=== PATIENT | female | born 1995 | race Caucasian/White ===

== ENCOUNTER 2019-11-24 14:33 | Outpatient (CLI) | payer OTHER, SELFPAY ==
[2019-11-24 15:07] VITALS: BP 115/79; PULSE 80; RESP 17; TEMP 36.8; O2SAT 95
[2019-11-24] MEDS: diphenhydrAMINE 50 mg/mL SDV 1mL 25 MG IVP (15:58)
[2019-11-24] MEDS: ondansetron 2 mg/ML SDV 2 mL 4 MG IVP (16:00)
[2019-11-24] MEDS: dihydroergotamine 1 mg/mL Inj IVP (16:14)
--- NOTE | 2019-11-24 16:47 | PC.NURSE ---
Patient had onset of increased headache, dizziness, stated I feel like I am going to pass out. The whole room is spinning. Vitals as recorded BP 168/88 Pulse 96. Provider notified, treatment stopped. Will await new orders.
[2019-11-24] MEDS: diphenhydrAMINE 50 mg/mL SDV 1mL IVP (17:23)
[2019-11-24] MEDS: ketorolac 30 mg/mL INJ IVP (17:23)
[2019-11-24] MEDS: metoclopramide 5 mg/mL SDV 2 mL 10 MG IVP (17:23)
--- NOTE | 2019-11-24 18:15 | PC.NURSE ---
BP 118/74 Pulse 69 Resp 16 Patient states pain is now a level 2/10 from 03/01. Will report to provider.
--- NOTE | 2019-11-24 18:22 | PC.NURSE ---
Spoke to Dr Barros report given states okay for patient to discharge home and follow up with office on Wednesday.
== END 2019-11-24 18:47 | disposition home or self-care (01) ==
LOC: OPMS 14:36 → MEDSURG 15:16
PROVIDERS: Family Provider Family Medicine; PCP Family Medicine; Visit Provider Family Medicine
DX: G43.509 Persistent migraine aura without cerebral infarction, not intractable, without status migrainosus (principal)
CPT/HCPCS: 96365; J1110; J1200; J1885; J2405; J2765

== ENCOUNTER 2019-12-04 14:14 | Outpatient (CLI) | payer OTHER, SELFPAY ==
--- NOTE | 2019-12-04 | MR_ITS ---
WS: [id number] MRI BRAIN WITH AND WITHOUT CONTRAST HISTORY: WORST HEADACHE OF LIFE COMPARISON: CT head 01/20/2019. TECHNIQUE: Multiplanar imaging performed through the brain with Prohance 17 ml's IV. No acute infarcts are seen. Barr-white matter differentiation is well preserved. No susceptibility artifacts or prior lacunar infarcts. Ventricles and extra-axial spaces are normal. Clivus and pituitary gland are normal. Craniocervical junction is narrowed. The odontoid process with mild contact on the ventral upper cerv ical cord. Postcontrast images are negative for masses or vascular malformations. Dural venous sinuses are normal. Paranasal sinuses: T2 bright 17 mm nodule LEFT frontal sinus. Probably mucous retention cyst. Otherwi se the sinuses are clear. Mastoid air cells: Normal. Calvarium and scalp: Normal. MR/MR head wo/w con [id number] IMPRESSION: 1. No acute infarct or abnormal enhancement. 2. Craniocervical junction stenosis, mild. May be symptomatic if causing compr ession upon the upper cervical cord. No cord atrophy or edema is appreciated. 3. Mucous retention cyst in the frontal sinuses.
== END 2019-12-04 14:15 | disposition home or self-care (01) ==
PROVIDERS: Family Provider Family Medicine; PCP Family Medicine; Visit Provider Family Medicine
DX: R51 Headache (principal); J34.1 Cyst and mucocele of nose and nasal sinus
CPT/HCPCS: 70553; A9579

== ENCOUNTER 2020-03-23 18:17 | Emergency (ER) | payer OTHER, SELFPAY ==
[2020-03-23 18:19] VITALS: BP 148/99; PULSE 117; RESP 20; TEMP 37.3; O2SAT 97
--- NOTE | 2020-03-23 18:24 | XRR_ITS ---
PROCEDURE INFORMATION: Exam: XR Chest, 1 View Exam date and time: 03/23/2020 6:26 PM Age: 25 years old Clinical indication: Cough; Additional info: SOB, cough and fever TECHNIQUE: Imaging protocol: XR of the chest Views: 1 view. COMPARISON: CR Chest 1 [place] [id number] 04/26/2015 8:46 AM FINDINGS: Lungs: Unremarkable. No consolidation. Pleural space: Unremarkable. No pleural effusion. No pneumothorax. Heart/Mediastinum: Unremarkable. No cardiomegaly. Bones/joints: Unremarkable. XR/XR chest 1V portable [id number] IMPRESSION: No acute findings.
--- NOTE | 2020-03-23 18:26 | ED_ITS ---
HPI - Fever General: Chief Complaint: Fever Stated Complaint: fever Time Seen by Provider: 03/23/20 18:22 History of Present Illness: HPI Narrative: Patient is a 25-year-old female who comes to the ED with fever, cough and nasal congestion for the past 36 hours. Highest temperature recorded at home was 100.6. Patient says the cough is productive and she gets up yellow-green sputum. Cough is worse at night when laying flat. She does describe feeling some shortness of breath as well, but no wheezing. Patient does endorse being in contact with COVID positive patient in the last 14 days. Endorses body aches. Denies any nausea, vomiting, abdominal pain, chest pain, bladder or bowel symptoms. Associated symptoms: Reports nasal congestion; Deny abdominal pain, flank pain, chills, chest pain, diarrhea, dysuria, headache(s), nausea or vomiting Review of Systems Const: Reports: fever(s) and body aches; Denies: chills or fatigue Eyes: Denies: change in vision or eye discomfort ENMT: Reports: nasal discharge and nasal congestion; Denies: throat pain, odynophagia or ear or mastoid pain Card: Denies: chest pain, palpitations, edema, swelling of feet/ankles, dyspnea on exertion or orthopnea Resp: Reports: dyspnea and productive cough; Denies: non-productive cough or wheezing GI: Denies: abdominal pain, nausea, vomiting, diarrhea, constipation or hematochezia : Denies: flank pain, dysuria or hematuria Musc: Denies: neck pain, back pain or extremity swelling Skin/Breast: Denies: rash or new lesions Neuro: Denies: headache(s), numbness in extremities or weakness in extremities Physical Exam Const: COMMON NORMALS: no acute distress, patient oriented x3, healthy appearing and alert GENERAL APPEARANCE: cooperative and comfortable HENMT: COMMON NORMALS: normocephalic HEAD & SCALP: normocephalic FACE & SINUS: no sinus tenderness and no Facial tenderness on exam of face and sinuses NOSE: Other nasal findings present (Patient sounded congested and was sniffling while in the ED during history and physical exam.) MOUTH: Normal oral and palatal mucosa present THROAT: posterior oropharynx normal and uvula midline Neck/C-Spine: COMMON NORMALS: supple GENERAL: Yes normal visual inspection Resp: COMMON NORMALS: normal respiratory effort, No retractions, No use of accessory muscles and clear to auscultation bilaterally EFFORT & INSPECTION: Yes able to speak in complete sentences, No tachypneic, No respiratory distress, No labored and No audible wheezes AUSCULTATION: clear to auscultation bilaterally and diminished lung sounds bilateral (Mild diminished lung sounds in the bases bilaterally, but no wheezing or crackling heard.) Cardio: COMMON NORMALS: regular rate, regular rhythm, S1 normal heart sound present, S2 normal heart sound present, No gallops present (Cardio), No clicks present (Cardio), No murmurs present (Cardio) and Peripheral pulses 2+ throughout RATE: regular rate RHYTHM: regular rhythm HEART SOUNDS: S1 normal heart sound present and S2 normal heart sound present PERIPHERAL PULSES: Peripheral pulses 2+ throughout GI: COMMON NORMALS: Normal to inspection, nondistended, normoactive bowel sounds present, Soft to palpation, non-tender and no masses PALPATION: Yes Soft to palpation : COMMON NORMALS: Yes no CVA tenderness BLADDER/KIDNEY EXAM: Yes no CVA tenderness Back/Pelvis: COMMON NORMALS: no CVA tenderness Extremity: COMMON NORMALS: normal to inspection and no pedal edema Neuro: COMMON NORMALS: patient oriented x3 and moves all extremities SENSORIUM/ORIENTATION: Yes alert Skin: COMMON NORMALS: no rashes or lesions noted GENERAL SKIN EXAM: no rashes or lesions noted and dry skin Course Vital Signs: Vital signs: Vital Signs Temperature 99.1 F 03/23/20 18:19 Pulse Rate 97 03/23/20 20:35 Respiratory Rate 19 H 03/23/20 20:35 Blood Pressure 124/80 03/23/20 20:35 Pulse Oximetry 98 03/23/20 20:35 MDM - Fever MDM Narrative: Medical decision making narrative: Patient is a 25-year-old female comes to the ED with upper respiratory infection symptoms and fever. CBC, CMP were unremarkable. hCG serum was negative. Influenza negative patient was given a DuoNeb treatment and symptoms improved. Chest x-ray showed no acute findings. COVID testing was performed and pending results. Patient was discharged and told to self quarantine for the next 14 days pending COVID results. She was sent home with a prescription for albuterol inhaler and Tessalon Perles. Return to ED precautions given. Patient understood and agreed with plan. Lab Data: Attestation: I reviewed the patient's lab results. Labs: Lab Results 03/23/20 03/23/20 03/23/20 Range/Units 18:30 18:52 18:52 WBC 9.4 (4.0-10.0) 10^3/ uL RBC 4.63 (4.1-5.3) 10^6/u L Hgb 13.7 (11.5-15.3) g/dL Hct 42.1 (37.0-47.0) % MCV 90.9 (81-99) fL MCH 29.6 (28.0-34.0) pg MCHC 32.5 (30.0-36.0) g/dL RDW 13.1 (12.1-15.1) % Plt Count 290 (130-400) 10^3/c mm MPV 10.2 (7.4-10.4) fL Neut % (Auto) 70.2 % Lymph % (Auto) 17.0 % [place] % (Auto) 8.0 % Eos % (Auto) 3.9 % Baso % (Auto) 0.7 % Neut # (Auto) 6.56 (1.8-7.7) 10^3/u L Lymph # (Auto) 1.6 (0.8-4.8) 10^3/u L [place] # (Auto) 0.8 (0.2-0.9) 10^3/u L Eos # (Auto) 0.4 (0.0-0.8) 10^3/u L Baso # (Auto) 0.1 (0.0-0.1) 10^3/u L Nucleated RBC % (a uto) 0 % Nucleated RBCs # 0.0 /100WBC Sodium 141 (136-145) mmol/L Potassium 4.1 (3.5-5.1) mmol/L Chloride 106 (98-107) mmol/L Carbon Dioxide 23 (22-29) mmol/L Anion Gap 16.1 (5-19) BUN 10 (6-20) mg/dL Creatinine 0.8 (0.5-0.9) mg/dL GFR Calculation 88.9 L (90-130) mL/min Glucose 96 (65-115) mg/dL Calculated Osmolal ity 288 (285-295) mOsm/k g Calcium 9.2 (8.5-10.5) mg/dL Total Bilirubin 0.3 (0.15-1.2) mg/dL AST 16 (0-32) U/L ALT 14 (0-33) U/L Alkaline Phosphata se 95 (35-105) IU/L Total Protein 7.3 (6.6-8.7) g/dL Albumin 4.5 (3.5-5.2) g/dL Globulin 2.8 (1.3-4.6) g/dL HCG, Qual (Negative) Influenza Type A A g Negative (Negative) Influenza Type B A g Negative (Negative) 03/23/20 Range/Units 18:52 WBC (4.0-10.0) 10^3/ uL RBC (4.1-5.3) 10^6/u L Hgb (11.5-15.3) g/dL Hct (37.0-47.0) % MCV (81-99) fL MCH (28.0-34.0) pg MCHC (30.0-36.0) g/dL RDW (12.1-15.1) % Plt Count (130-400) 10^3/c mm MPV (7.4-10.4) fL Neut % (Auto) % Lymph % (Auto) % [place] % (Auto) % Eos % (Auto) % Baso % (Auto) % Neut # (Auto) (1.8-7.7) 10^3/u L Lymph # (Auto) (0.8-4.8) 10^3/u L [place] # (Auto) (0.2-0.9) 10^3/u L Eos # (Auto) (0.0-0.8) 10^3/u L Baso # (Auto) (0.0-0.1) 10^3/u L Nucleated RBC % (a uto) % Nucleated RBCs # /100WBC Sodium (136-145) mmol/L Potassium (3.5-5.1) mmol/L Chloride (98-107) mmol/L Carbon Dioxide (22-29) mmol/L Anion Gap (5-19) BUN (6-20) mg/dL Creatinine (0.5-0.9) mg/dL GFR Calculation (90-130) mL/min Glucose (65-115) mg/dL Calculated Osmolal ity (285-295) mOsm/k g Calcium (8.5-10.5) mg/dL Total Bilirubin (0.15-1.2) mg/dL AST (0-32) U/L ALT (0-33) U/L Alkaline Phosphata se (35-105) IU/L Total Protein (6.6-8.7) g/dL Albumin (3.5-5.2) g/dL Globulin (1.3-4.6) g/dL HCG, Qual Negative (Negative) Influenza Type A A g (Negative) Influenza Type B A g (Negative) Imaging Data^: CXR: Attestation: I personally reviewed and interpreted this imaging study as follows: Radiologist's impression: [address] [address] XRay Report Signed Patient: Jennifer Amos Unit #: [id number] : 1995 Age/Sex: 25 / F ADM Date: 03/23/20 Loc: ER Room/Bed: Attending Dr: Ordering Provider/Ordering MD: Sanchez Kenyon Date of Service: 03/23/20 Procedure(s): XR chest 1V portable [id number] Accession Number(s): [id number] Report Number: [id number] PROCEDURE INFORMATION: Exam: XR Chest, 1 View Exam date and time: 03/23/2020 6:26 PM Age: 25 years old Clinical indication: Cough; Additional info: SOB, cough and fever TECHNIQUE: Imaging protocol: XR of the chest Views: 1 view. COMPARISON: CR Chest 1 [place] [id number] 04/26/2015 8:46 AM FINDINGS: Lungs: Unremarkable. No consolidation. Pleural space: Unremarkable. No pleural effusion. No pneumothorax. Heart/Mediastinum: Unremarkable. No cardiomegaly. Bones/joints: Unremarkable. XR/XR chest 1V portable [id number] IMPRESSION: No acute findings. Dictated By: Sushant Haskins Signed By: Sushant Haskins Signed Date/Time: 03/23/201911 DD/ 09 Discharge Plan Discharge Patient Disposition: Home Clinical Impression: Upper respiratory infection, viral, Encounter for laboratory testing for COVID- 19 virus Condition: Stable Prescriptions: New benzonatate 100 mg capsule 100 mg PO TID PRN (Reason: cough) Qty: 30 RF: 0 albuterol sulfate 90 mcg/actuation aerosol powdr breath activated 2 inh INHALATION Q6H PRN (Reason: shortness of breath) Qty: 1 RF: 0 Discharge Orders: Discharge Order (Routine); Ordered 03/23/20 Ordered By: Sanchez Kenyon Referrals: Howie Barros MD [Primary Care Provider] - Discharge Diet: Regular Discharge Activity: Increase activity as tolerated and Limit activity as instructed Patient Instructions: Viral Syndrome (ED), Upper Respiratory Infection - Adult Activity Restrictions/Additional Instructions: Follow-up with medical provider as directed in 7-10 days. COVID-19 testing was performed today and lab results should be back within the next 2 to 4 days. The hospital will contact you or you can call hospital if you have not heard about results in the next 3 to 4 days. Self quarantine for 14 days pending lab testing. Take medications as prescribed. Continue taking Tylenol for fevers. Make sure you drink plenty of fluids and stay hydrated. Return to the ER or your medical provider if condition worsens. Please read and understand discharge instructions. If any questions, please ask. Discharge Date/Time: 03/23/20 20:35 Coding Level of Care Code ED Real Estate Investment Analyst for Mukul Fwcaroline Exam Comprehensive
[2020-03-23 18:40] VITALS: RESP 18
[2020-03-23 18:57] LABS: Basophils # 0.1 10^3/uL (0.0-0.1); Basophils % 0.7 %; Eosinophils # 0.4 10^3/uL (0.0-0.8); Eosinophils % 3.9 %; Hematocrit 42.1 % (37.0-47.0); Hemoglobin 13.7 g/dL (11.5-15.3); Lymphocytes # 1.6 10^3/uL (0.8-4.8); Mean Corpuscular HGB Conc 32.5 g/dL (30.0-36.0); Mean Corpuscular Hemoglobin 29.6 pg (28.0-34.0); Mean Corpuscular Volume 90.9 fL (81-99); Mean Platelet Volume 10.2 fL (7.4-10.4); Monocytes # 0.8 10^3/uL (0.2-0.9); Neutrophils # 6.56 10^3/uL (1.8-7.7); Neutrophils % 70.2 %; Nucleated Red Blood Cells % 0 %; Platelet Count 290 10^3/cmm (130-400); Red Blood Count 4.63 10^6/uL (4.1-5.3); Red Cell Distribution Width 13.1 % (12.1-15.1); White Blood Count 9.4 10^3/uL (4.0-10.0)
[2020-03-23 18:59] LABS: Influenza A by IFA Negative (Negative); Influenza B by IFA Negative (Negative)
[2020-03-23 19:12] LABS: HCG, Serum Qual Negative (Negative)
[2020-03-23 19:18] LABS: Alanine Aminotransferase 14 U/L (0-33); Albumin Level 4.5 g/dL (3.5-5.2); Alkaline Phosphatase 95 IU/L (35-105); Anion Gap 16.1 (5-19); Aspartate Amino Transferase 16 U/L (0-32); Blood Urea Nitrogen 10 mg/dL (6-20); Calcium 9.2 mg/dL (8.5-10.5); Carbon Dioxide 23 mmol/L (22-29); Chloride 106 mmol/L (98-107); Globulin 2.8 g/dL (1.3-4.6); Glomerular Filtration Rate 88.9 mL/min (90-130); Glucose 96 mg/dL (65-115); Osmolality Calculated 288 mOsm/kg (285-295); Potassium 4.1 mmol/L (3.5-5.1); Sodium 141 mmol/L (136-145); Total Bilirubin 0.3 mg/dL (0.15-1.2); Total Protein 7.3 g/dL (6.6-8.7)
--- NOTE | 2020-03-23 19:36 | PC.NURSE ---
PATIENT SWABBED FOR COVID AT THIS TIME
[2020-03-23 19:48] VITALS: PULSE 103; RESP 20; O2SAT 97
[2020-03-23] MEDS: ipratropium-albuterol 3 mL Neb INHALATION (19:48)
[2020-03-23 19:51] VITALS: PULSE 101
[2020-03-23 20:34] VITALS: BP 124/80; PULSE 97; RESP 19; O2SAT 98
[2020-03-23 20:35] VITALS: BP 124/80; PULSE 97; RESP 19; O2SAT 98
[2020-03-25 15:00] LABS: Quest SARS-CoV-2 RNA NOT DETECTED (NOT DETECTED)
== END 2020-03-23 20:35 | disposition home or self-care (01) ==
PROVIDERS: Emergency Provider Physician Assistant; PCP Family Medicine
DX: J06.9 Acute upper respiratory infection, unspecified (principal)
CPT/HCPCS: 12345; 71045; 80053; 84703; 85025; 87040; 87635; 87804; 94640; 99281; 99283

== ENCOUNTER 2020-11-02 07:50 | Outpatient (CLI) | payer OTHER, SELFPAY ==
[2020-11-02] MEDS: dextrose 5%-sod chloride 0.9% 1,000 ML 125 ML IV (08:56)
[2020-11-02] MEDS: promethazine 25 mg/mL SDV 1 mL IM (08:57)
[2020-11-02] MEDS: sodium chloride 0.9% 1,000 ML 999 ML IV (09:50)
== END 2020-11-02 11:00 | disposition home or self-care (01) ==
LOC: OPOB 07:57 → OBGYN 07:58
PROVIDERS: PCP Family Medicine; Visit Provider Family Medicine
DX: O21.9 Vomiting of pregnancy, unspecified (principal); Z3A.00 Weeks of gestation of pregnancy not specified
CPT/HCPCS: 96360; 96361; 96372; 99211; J2550; J7030

== ENCOUNTER 2021-01-12 03:17 | Outpatient (CLI) | payer OTHER, SELFPAY ==
[2021-01-12] VITALS (10 sets, daily range): BP systolic 113–174; BP diastolic 65–96; PULSE 85–104; RESP 16; TEMP 36.5; O2SAT 90–98; BMI 49.1
[2021-01-12 04:28] LABS: Basophils # 0.1 10^3/uL (0.0-0.1); Basophils % 0.4 %; Eosinophils # 0.3 10^3/uL (0.0-0.8); Eosinophils % 2.3 %; Hematocrit 37.3 % (37.0-47.0); Hemoglobin 12.6 g/dL (11.5-15.3); Lymphocytes # 2.3 10^3/uL (0.8-4.8); Mean Corpuscular HGB Conc 33.8 g/dL (30.0-36.0); Mean Corpuscular Hemoglobin 30.7 pg (28.0-34.0); Mean Corpuscular Volume 90.8 fL (81-99); Mean Platelet Volume 11.2 fL (7.4-10.4); Monocytes # 0.7 10^3/uL (0.2-0.9); Monocytes % 5.6 %; Neutrophils # 8.64 10^3/uL (1.8-7.7); Neutrophils % 72.4 %; Nucleated Red Blood Cells % 0 %; Platelet Count 257 10^3/cmm (130-400); Red Blood Count 4.11 10^6/uL (4.1-5.3); Red Cell Distribution Width 14.2 % (12.1-15.1); White Blood Count 11.9 10^3/uL (4.0-10.0)
--- NOTE | 2021-01-12 04:42 | USR_ITS ---
PROCEDURE INFORMATION: Exam: US , Limited Exam date and time: 01/12/2021 4:44 AM Age: 25 years old Clinical indication: Lmp or gestational age (in weeks): 18 w 2 day; Other: Bleeding; ; Additional info: Vaginal bleeding TECHNIQUE: Imaging protocol: Real-time ultrasound of the maternal uterus with image documentation. Exam focused on the clinical indication. COMPARISON: [facility] OB Follow up 12/09/2018 3:06 PM FINDINGS: Gestation: Fetus is transverse. heart rate: heart rate = 171 bpm. Placenta: Placenta is anterior. No retroplacental hematoma. BIOMETRY: Femur length: Femoral length = 2.7 cm. MATERNAL: Cervix: Cervix is 6.4 cm in length. US/ OB limited [id number] IMPRESSION: 1. Single live intrauterine gestation with a heart rate of 171 bpm. 2. No abruption.
== END 2021-01-12 06:25 | disposition home or self-care (01) ==
LOC: OPOB 03:18 → OBGYN 06:17
PROVIDERS: PCP Family Medicine; Visit Provider Family Medicine
DX: O46.90 Antepartum hemorrhage, unspecified, unspecified trimester (principal); Z3A.00 Weeks of gestation of pregnancy not specified
CPT/HCPCS: 76815; 85025; 86850; 86900; 90384; 99211

== ENCOUNTER 2021-02-26 22:50 | Outpatient (CLI) | payer OTHER, SELFPAY ==
[2021-02-26 23:00] VITALS: BP 126/98; PULSE 90
[2021-02-26 23:08] VITALS: TEMP 36.7
[2021-02-26 23:17] VITALS: RESP 15; BMI 49.1
--- NOTE | 2021-02-26 23:18 | USR_ITS ---
PROCEDURE INFORMATION: Exam: US , Limited Exam date and time: 02/26/2021 11:18 PM Age: 26 years old Clinical indication: Lmp or gestational age (in weeks): 24 w 5 day; Other: Vag bleed post fall; ; Additional info: Vaginal bleeding TECHNIQUE: Imaging protocol: Real-time ultrasound of the maternal uterus with image documentation. Exam focused on the clinical indication. COMPARISON: US OB >= 14 weeks fetus [id number] 01/21/2021 8:25 AM FINDINGS: Gestation: Intrauterine gestation. presentation: Cephalic presentation. heart rate: heart beat 144 bpm. Placenta: Anterior placenta. Amniotic fluid: Subjectively normal amniotic fluid. MATERNAL: Cervix: 4.8 cm closed cervix. Other findings: Examination is limited secondary to body habitus. US/US OB limited [id number] IMPRESSION: 1. heart beat 144 bpm. 2. Cephalic presentation. 3. Examination is limited secondary to body habitus. 4. 4.8 cm closed cervix. 5. Anterior placenta. 6. Subjectively normal amniotic fluid.
[2021-02-26 23:35] LABS: Bacteria Urine 1+ /hpf; Bilirubin Urine Neg (Negative); Blood Urine 3+ (Negative); Glucose Urine UA Norm (Normal); Ketones Urine 1+ (Negative); Leukocyte Esterase Urine Trace (Negative); Nitrate Urine Negative (Negative); Protein Urine Neg (Negative); RBC Urine 40-50 /hpf (0-2); Specific Gravity, Urine 1.025 (1.005-1.030); Urine Appearance Hazy (CLEAR); Urine Color Yellow (Yellow); Urobilinogen Urine Norm (Negative); pH Urine 5 (5-7)
[2021-02-26 23:36] LABS: Calcium Oxalate Crystals Urine >100 /hpf
[2021-02-26 23:37] LABS: Add Urine Culture? No
[2021-02-27 01:38] VITALS: BP 126/65; PULSE 89
== END 2021-02-27 01:51 | disposition home or self-care (01) ==
LOC: OPOB 22:51 → OBGYN 22:54
PROVIDERS: PCP Family Medicine; Visit Provider Family Medicine
DX: O46.90 Antepartum hemorrhage, unspecified, unspecified trimester (principal); Z3A.00 Weeks of gestation of pregnancy not specified
CPT/HCPCS: 76815; 81001; 99211

== ENCOUNTER 2021-03-08 18:50 | Outpatient (CLI) | payer OTHER, SELFPAY ==
[2021-03-08] VITALS (21 sets, daily range): BP systolic 80–147; BP diastolic 42–87; PULSE 81–108; RESP 16; TEMP 36.2; O2SAT 84–100; BMI 49.6
--- NOTE | 2021-03-08 19:39 | USR_ITS ---
PROCEDURE INFORMATION: Exam: US , Limited Exam date and time: 03/08/2021 7:39 PM Age: 26 years old Clinical indication: Lmp or gestational age (in weeks): 26 week; Antepartum complications; Bleeding; ; Additional info: Vaginal bleeding 26.2 week gestation TECHNIQUE: Imaging protocol: Real-time ultrasound of the maternal uterus with image documentation. Exam focused on the clinical indication. COMPARISON: US OB limited [id number] 02/26/2021 11:33 PM FINDINGS: Gestation: Intrauterine gestation. presentation: Breech presentation. heart rate: heart beat 153 bpm. Placenta: Anterior placenta. Amniotic fluid: Amniotic fluid appears subjectively within normal limits. BIOMETRY: Femur length: 4.80 cm femur length with EGA 26 weeks 1 day. MATERNAL: Cervix: 6.3 cm closed cervix. US/US OB >= 14 weeks fetus [id number] IMPRESSION: 1. 6.3 cm closed cervix. 2. heart beat 153 bpm. 3. Breech presentation. 4. 4.80 cm femur length with EGA 26 weeks 1 day. 5. Anterior placenta. 6. Amniotic fluid appears subjectively within normal limits.
[2021-03-08 20:54] LABS: Bilirubin Urine 1+ (Negative); Blood Urine Neg (Negative); Glucose Urine UA Norm (Normal); Ketones Urine 1+ (Negative); Leukocyte Esterase Urine Negative (Negative); Nitrate Urine Negative (Negative); Protein Urine Neg (Negative); Specific Gravity, Urine 1.025 (1.005-1.030); Urine Appearance Clear (CLEAR); Urine Color Yellow (Yellow); Urobilinogen Urine 4 mg/dL (Negative); pH Urine 5 (5-7)
[2021-03-08 20:55] LABS: Add Urine Culture? No; Calcium Oxalate Crystals Urine 3+ /hpf; Mucus Urine TRACE /hpf
[2021-03-08] MEDS: terbutaline 1 mg/mL INJ 0.25 MG SUBCUT (21:10)
[2021-03-08] MEDS: betamethasone susp 6 mg/mL 5 mL 12 MG IM (21:10)
== END 2021-03-08 22:30 | disposition home or self-care (01) ==
LOC: OPOB 18:53 → OBGYN 18:55
PROVIDERS: PCP Family Medicine; Visit Provider Family Medicine
DX: O46.90 Antepartum hemorrhage, unspecified, unspecified trimester (principal); Z3A.00 Weeks of gestation of pregnancy not specified; R10.9 Unspecified abdominal pain
CPT/HCPCS: 76805; 81001; 96372; 99211; J0702; J3105

== ENCOUNTER 2021-03-09 21:03 | Outpatient (CLI) | payer OTHER, SELFPAY ==
[2021-03-09 21:17] VITALS: BP 107/58; PULSE 76
[2021-03-09 21:18] VITALS: TEMP 36
[2021-03-09 21:49] VITALS: BP 129/69; PULSE 90
[2021-03-09] MEDS: NIFEdipine 10 mg Capsule 20 MG PO (21:53)
[2021-03-09] MEDS: betamethasone susp 6 mg/mL 5 mL 12 MG IM (21:53)
[2021-03-09 22:30] VITALS: BMI 49.1
[2021-03-09 22:34] VITALS: BP 131/84; PULSE 82
[2021-03-09 22:47] VITALS: BP 116/57; PULSE 76
[2021-03-09 22:51] VITALS: BP 128/74; PULSE 90; TEMP 35.8
[2021-03-09] MEDS: NIFEdipine ER (24 hr) 30 mg Tablet PO (23:02)
== END 2021-03-09 23:05 | disposition home or self-care (01) ==
LOC: OPOB 21:04 → OBGYN 21:04
PROVIDERS: PCP Family Medicine; Visit Provider Family Medicine
DX: O26.899 Other specified pregnancy related conditions, unspecified trimester (principal); Z3A.00 Weeks of gestation of pregnancy not specified
CPT/HCPCS: 59025; 96372; 99211; J0702

== ENCOUNTER 2021-03-11 03:00 | Outpatient (CLI) | payer OTHER, SELFPAY ==
[2021-03-11] VITALS (28 sets, daily range): BP systolic 103–139; BP diastolic 53–80; PULSE 72–116; RESP 18; TEMP 36.6–37; O2SAT 90–100; BMI 49.6
[2021-03-11] MEDS: terbutaline 1 mg/mL INJ 0.25 MG SUBCUT (03:47)
[2021-03-11] MEDS: NIFEdipine 10 mg Capsule 20 MG PO (04:47)
[2021-03-11] MEDS: HYDROcodone-acetaminophen 5-325 mg Tablet 1 TAB PO (05:22)
[2021-03-11 05:25] LABS: Basophils % 0.2 %; Eosinophils % 0.3 %; Hematocrit 35.7 % (37.0-47.0); Hemoglobin 11.8 g/dL (11.5-15.3); Lymphocytes # 3.2 10^3/uL (0.8-4.8); Lymphocytes % 22.7 %; Mean Corpuscular HGB Conc 33.1 g/dL (30.0-36.0); Mean Corpuscular Hemoglobin 31.1 pg (28.0-34.0); Mean Corpuscular Volume 93.9 fL (81-99); Mean Platelet Volume 10.8 fL (7.4-10.4); Monocytes # 1.1 10^3/uL (0.2-0.9); Monocytes % 7.5 %; Neutrophils # 9.64 10^3/uL (1.8-7.7); Neutrophils % 68.5 %; Nucleated Red Blood Cells % 0 %; Platelet Count 227 10^3/cmm (130-400); Red Cell Distribution Width 14.4 % (12.1-15.1); White Blood Count 14.1 10^3/uL (4.0-10.0)
[2021-03-11 05:32] LABS: Add Urine Culture? No; Bacteria Urine 1+ /hpf; Bilirubin Urine Neg (Negative); Blood Urine Neg (Negative); Calcium Oxalate Crystals Urine >100 /hpf; Glucose Urine UA Norm (Normal); Ketones Urine 1+ (Negative); Leukocyte Esterase Urine Negative (Negative); Nitrate Urine Negative (Negative); Protein Urine Neg (Negative); RBC Urine 0-4 /hpf (0-2); Squamous Epithelial Cell Urine 15-25 /hpf (0-5); Urine Appearance SL Hazy (CLEAR); Urine Color Yellow (Yellow); Urobilinogen Urine 1 mg/dL (Negative); WBC Urine 0-4 /hpf (0-5); pH Urine 5 (5-7)
[2021-03-11] MEDS: sodium chloride 0.9% 1,000 ML 999 ML IV (07:19)
[2021-03-11] MEDS: promethazine 25 mg/mL SDV 1 mL IM (07:50)
[2021-03-11] MEDS: morphine 4 mg/mL SDV 1 mL 8 MG IM (07:50)
== END 2021-03-11 10:34 | disposition home or self-care (01) ==
LOC: OPOB 03:04 → OBGYN 03:06
PROVIDERS: PCP Family Medicine; Visit Provider Family Medicine
DX: O26.899 Other specified pregnancy related conditions, unspecified trimester (principal); Z3A.00 Weeks of gestation of pregnancy not specified; R10.9 Unspecified abdominal pain
CPT/HCPCS: 36415; 81001; 85025; 96372; 99211; J2270; J2550; J3105; J7030

== ENCOUNTER 2021-04-07 11:12 | Outpatient (CLI) | payer OTHER, SELFPAY ==
[2021-04-07 11:24] VITALS: BP 128/67; PULSE 77
[2021-04-07 11:28] VITALS: TEMP 36.5
[2021-04-07 11:45] VITALS: BMI 50.7
[2021-04-07 11:48] VITALS: BP 130/73; PULSE 93
[2021-04-07 11:48] LABS: Nitrazine Paper, PH Negative
[2021-04-07 12:03] VITALS: BP 112/66; PULSE 94
[2021-04-07 12:11] LABS: Blood Urine 3+ (Negative); Glucose Urine UA Norm (Normal); Ketones Urine Negative (Negative); Protein Urine Neg (Negative); Urine Appearance SL Hazy (CLEAR); Urine Color Yellow (Yellow); pH Urine 6.5 (5-7)
[2021-04-07 12:12] LABS: Bilirubin Urine Neg (Negative); Leukocyte Esterase Urine Negative (Negative); Nitrate Urine Negative (Negative); Urobilinogen Urine Norm (Negative)
[2021-04-07 12:19] LABS: RBC Urine 0-4 /hpf (0-2); WBC Urine 0-4 /hpf (0-5)
[2021-04-07 12:20] LABS: Add Urine Culture? No; Bacteria Urine TRACE /hpf; Calcium Oxalate Crystals Urine 80-100 /hpf; Mucus Urine TRACE /hpf
== END 2021-04-07 12:18 | disposition home or self-care (01) ==
LOC: OPOB 11:13 → OBGYN 11:13
PROVIDERS: PCP Family Medicine; Visit Provider Family Medicine
DX: O46.90 Antepartum hemorrhage, unspecified, unspecified trimester (principal); Z3A.00 Weeks of gestation of pregnancy not specified; N89.8 Other specified noninflammatory disorders of vagina
CPT/HCPCS: 81001; 83986; 99211

== ENCOUNTER 2021-04-20 06:45 | Outpatient (CLI) | payer OTHER, SELFPAY ==
[2021-04-20] VITALS (18 sets, daily range): BP systolic 106–121; BP diastolic 58–78; PULSE 73–123; RESP 16; TEMP 37.1; O2SAT 96–100; BMI 51.5
[2021-04-20] MEDS: terbutaline 1 mg/mL INJ 0.25 MG SUBCUT ×3 (07:38→09:28)
[2021-04-20] MEDS: sodium chloride 0.9% 1,000 ML 999 ML IV (07:45)
[2021-04-20 09:19] LABS: Urine Appearance Clear (CLEAR); Urine Color Yellow (Yellow)
[2021-04-20 09:20] LABS: Bilirubin Urine Neg (Negative); Blood Urine 2+ (Negative); Glucose Urine UA Norm (Normal); Ketones Urine Negative (Negative); Leukocyte Esterase Urine Negative (Negative); Nitrate Urine Negative (Negative); Protein Urine Neg (Negative); Urobilinogen Urine Norm (Negative); pH Urine 6 (5-7)
[2021-04-20 09:21] LABS: Bacteria Urine 1+ /hpf; RBC Urine 0-4 /hpf (0-2)
[2021-04-20 09:22] LABS: Add Urine Culture? No
== END 2021-04-20 10:10 | disposition home or self-care (01) ==
LOC: OPOB 06:51 → OBGYN 06:52
PROVIDERS: PCP Family Medicine; Visit Provider Family Medicine
DX: O26.899 Other specified pregnancy related conditions, unspecified trimester (principal); Z3A.00 Weeks of gestation of pregnancy not specified; R10.9 Unspecified abdominal pain
CPT/HCPCS: 59025; 81001; 96372; 99211; J3105; J7030

== ENCOUNTER 2021-06-10 18:50 | Inpatient (IN) | payer OTHER, SELFPAY ==
[2021-06-10 19:36] VITALS: BP 133/78; PULSE 86
[2021-06-10] MEDS: miSOPROStol 100 mcg tablet 25 MCG VAGINAL (19:55)
[2021-06-10 20:04] VITALS: BMI 52.4
[2021-06-10 20:06] VITALS: BP 123/73; PULSE 84
[2021-06-10 20:10] VITALS: RESP 16
[2021-06-10 20:10] LABS: Basophils # 0.1 10^3/uL (0.0-0.1); Basophils % 0.5 %; Eosinophils # 0.3 10^3/uL (0.0-0.8); Eosinophils % 2.1 %; Mean Corpuscular HGB Conc 32.4 g/dL (30.0-36.0); Mean Corpuscular Hemoglobin 29.6 pg (28.0-34.0); Mean Corpuscular Volume 91.4 fl (81-99); Mean Platelet Volume 12.5 fL (7.4-10.4); Monocytes # 1.1 10^3/uL (0.2-0.9); Monocytes % 8.9 %; Neutrophils # 7.63 10^3/uL (1.8-7.7); Neutrophils % 63.2 %; Nucleated Red Blood Cells % 0 %; Platelet Count 221 10^3/cmm (130-400); Red Blood Count 4.05 10^6/uL (4.1-5.3); Red Cell Distribution Width 14.9 % (12.1-15.1); White Blood Count 12.1 10^3/uL (4.0-10.0)
[2021-06-10 21:26] VITALS: BP 124/79; PULSE 101
[2021-06-10 22:53] VITALS: BP 111/59; PULSE 97
[2021-06-11] VITALS (49 sets, daily range): BP systolic 69–134; BP diastolic 33–88; PULSE 36–119; RESP 16–18; TEMP 35.3–36.6; O2SAT 90–100
[2021-06-11] MEDS: miSOPROStol 100 mcg tablet 25 MCG VAGINAL ×3 (01:00→10:00)
[2021-06-11] MEDS: morphine 4 mg/mL SDV 1 mL 8 MG IM (01:31)
[2021-06-11] MEDS: promethazine 25 mg/mL SDV 1 mL IM (01:32)
--- NOTE | 2021-06-11 06:55 | PM.OPHPUD ---
Labor & Delivery H&P Update Date of Procedure: June 11, 2021 Date H&P Performed: 06/05/21 H&P update information: I have reviewed H&P completed within last 30 days, I have examined patient prior to procedure, No changes to prior documentation and H&P to be scanned into chart Admission Diagnosis: Preop diagnosis: 26-year-old 2 at 39 weeks estimated gestational age Planned procedure: Spontaneous vaginal delivery Related Problem List Diagnoses (1) 39 weeks gestation of :
[2021-06-11] MEDS: fentaNYL 50 mcg/mL INJ 2mL IVP ×4 (10:12→23:21)
[2021-06-11] MEDS: lactated ringers 1,000 ML 999 ML IV ×3 (13:11→23:10)
--- NOTE | 2021-06-11 14:15 | ANES.PREANE2 ---
Pre-Anesthetic Assessment Pre-Anesthetic Assessment: Height/Weight: Height 1.65 m Weight 142.882 kg Temp Pulse Resp BP 97.9 F 82 18 101/59 06/11/21 09:26 06/11/21 14:12 06/11/21 12:00 06/11/21 14:12 Preop Diagnosis: 26-year-old 2 at 39 weeks estimated gestational age Was Beta Rj taken within 24 hours: N/A Was Clonidine taken within 24 hours: N/A Social: Social History: No alcohol and No tobacco Exam: Pre-Anes Outpt Exam: alert, oriented x 3, clear to auscultation bilaterally and regular rate & rhythm Airway: Submandibular: WNL Cervical ROM: WNL MP: 2 Dentition: Full History/ROS: No significant history except as noted Metabolic: Metabolic: Morbid obesity Anesthetic Plan: Anesthesia: Regional (specify below) (Labor epidural) Risk of > 500 ml blood loss (7ml/kg in children): No Meds/Allergies Current Medications: Current Medications Generic Name Dose Route Start Last Admin Trade Name Freq PRN Reason Stop Dose Admin Fentanyl 25 - 100 mcg 06/10/21 19:39 06/11/21 12:00 Fentanyl 50 Mcg/ Ml Inj 2ml IVP 50 mcg Q1H PRN Administration SEVERE PAIN Dextrose/Lactated Ringer's 1,000 mls @ 125 m ls/hr 06/10/21 19:45 06/11/21 05:59 Dextrose 5%-Lact ated Ringers IV Not Given .Q8H STEVE Ropivacaine 200 mg in 100 mls @ 13 mls/hr 06/11/21 12:15 06/11/21 13:33 Naropin Premix EPIDURAL 13 mls/hr .Q7H42M STEVE Administration Lactated Ringer's 1,000 mls @ 999 m ls/hr 06/11/21 12:09 06/11/21 13:32 Lactated Ringers IV 999 mls/hr .Q1H1M PRN Administration See label comment s PFSH Anesthesia Female Reproductive History: : 2 Data Anesthesia CBC & Chem 7: 06/10/21 19:20 Other Labs: Laboratory Results - last 48 hr 06/10/21 19:20 WBC 12.1 H RBC 4.05 L Hgb 12.0 Hct 37.0 MCV 91.4 MCH 29.6 MCHC 32.4 RDW 14.9 Plt Count 221 MPV 12.5 H Neut % (Auto) 63.2 Lymph % (Auto) 25.0 [place] % (Auto) 8.9 Eos % (Auto) 2.1 Baso % (Auto) 0.5 Neut # (Auto) 7.63 Lymph # (Auto) 3.0 [place] # (Auto) 1.1 H Eos # (Auto) 0.3 Baso # (Auto) 0.1 Nucleated RBC % (auto) 0 Nucleated RBCs # 0.0 Cardiac Studies: No Data to Display
--- NOTE | 2021-06-11 14:16 | ANES.PROC ---
Anesthesia Procedures Procedure/Date: 06/11/21 Epidural: Time Out Performed: Yes Consents Signed: Procedure Consent Consent: requested by attending/covering physician, from patient, risks and benefits reviewed and patient agrees to proceed Lumbar Level: L3-L4 Epidural position: sitting Epidural procedure: sterile prep of area, 1% lidocaine to numb the area, neg for paresthesia, test dose given, placed PCEA, no systemic response, sterile dressing applied and 0.2% Ropiavacaine @ mls/hr (13) Additional Comments: ENOCH at 8cm, Cath at 13cm, bolused 5mls of 2% lido
[2021-06-11] MEDS: hyDROXYzine 25 mg Capsule 50 MG PO (14:47)
--- NOTE | 2021-06-11 15:36 | PM.MISC ---
Miscellaneous Note Purpose of Documentation: Perineal discomfort, bolused 100mcg fent and 5mls of 0.5% bup with improvement.
[2021-06-11] MEDS: dextrose 5%-lactated ringers 1,000 ML 125 ML IV (16:12)
[2021-06-11] MEDS: oxytocin 30 UNIT/500 ML BAG IV (17:01)
[2021-06-11] MEDS: ondansetron 2 mg/ML SDV 2 mL 4 MG IVP (19:08)
[2021-06-11] MEDS: ketorolac 30 mg/mL INJ IVP (23:38)
[2021-06-11] MEDS: lidocaine 2% INJ 20 mL INJECTION (23:39)
[2021-06-12] VITALS (10 sets, daily range): BP systolic 94–140; BP diastolic 63–86; PULSE 71–97; RESP 17; TEMP 36.5–37.2; O2SAT 96–98
--- NOTE | 2021-06-12 00:06 | PM.DELIVERY ---
Delivery Note: Date of delivery: June 12, 2021 Pre-delivery diagnoses: 1. 26-year-old 2 para 1-0-0-1 at 39 weeks 2. Presenting for induction Post-delivery diagnoses: Same Procedure: Vacuum-assisted vaginal delivery Op report anesthesia: Epidural Delivering Physician: Howie Barros Estimated blood loss (mL): 150 Pre-Delivery Course: The patient presented to the hospital for elective induction. She was placed on Cytotec 25 mcg x 3. An amniotomy was performed. An epidural was placed. Due to an inadequate control of pain, her epidural was redosed. She then progressed to complete. We allowed her to labor down for about an hour after she was complete. Delivery: DELIVERY: The patient progressed to complete without difficulty. While pushing, the patient was arranged to lose control.During her previous delivery, she became inconsolable, and they wanted to avoid that happening. As result I placed a vacuum on the 's head and used the vacuum during 2 pushes. I increase his suction to the green range while pushing, then released the pressure in between contractions. There were no polyps. After delivery of the head, the anterior shoulder was noted to be impacted on the pubic bone. Suprapubic pressure Killian were used. After attempting a reverse wood screw maneuver, I then elected to deliver the posterior shoulder. The posterior shoulder delivered fairly quickly, and the baby was delivered without incident. The baby was a female with a weight of 7 pounds 6 ounces with Apgars of 7, 9. The baby was delivered from the INES position. The baby was then placed on the mother's abdomen. The baby appeared somewhat stunned, so elected to immediately cut and clamped the cord. There was no nuchal cord. Light meconium was noted. The placenta and 3 vessel cord were delivered intact shortly thereafter. The perineum and vaginal vault were carefully examined. A posterior second-degree midline tear was noted. It was repaired with 3-0 Vicryl in the usual fashion. 2% lidocaine without epinephrine was used to anesthetize the area. Both the mother and the baby were in stable condition. A&P Assessment and plan (1) 39 weeks gestation of : The mother is doing much better now. Anticipate she will have a routine hospital stay. Status: Acute (2) Vacuum-assisted vaginal delivery: Status: Acute (3) Shoulder dystocia during labor and delivery: Status: Acute Coding Level of Care Code Acute Teacher Selection Specialist for Chg Fwd Diagnoses 39 weeks gestation of Z3A.39 Vacuum-assisted vaginal delivery Z37.9 Shoulder dystocia during labor and delivery O66.0
[2021-06-12] MEDS: benzocaine-menthol 78 gm Canister 1 SPRAY TOPICAL (01:13)
[2021-06-12] MEDS: HYDROcodone-acetaminophen 5-325 mg Tablet PO ×4 (01:13→20:57)
[2021-06-12] MEDS: ibuprofen 800 mg tablet PO ×3 (08:31→20:21)
[2021-06-12] MEDS: prenatal vitamin Capsule 1 CAP PO (08:31)
[2021-06-12] MEDS: sertraline 50 mg Tablet 100 MG PO (08:31)
[2021-06-12] MEDS: docusate sodium 100 mg Capsule PO (08:32)
--- NOTE | 2021-06-12 13:04 | ANE.PACU2 ---
Inpatient post-anesthesia follow up: Airway intact: Yes Vital signs: Temperature 98.5 F Pulse Rate 76 Respiratory Rate 16 Blood Pressure 110/70 Pulse Oximetry 98 Oxygen Delivery Me thod Room Air Oxygen Flow Rate Fraction of Inspir ed Oxygen Hydration adequate: Yes Nausea and vomiting: No Pain level: 2 Mental status: Baseline
[2021-06-12 13:36] LABS: Hematocrit 34.8 % (37.0-47.0); Hemoglobin 11.4 g/dL (11.5-15.3); Mean Corpuscular HGB Conc 32.8 g/dL (30.0-36.0); Mean Corpuscular Hemoglobin 30.4 pg (28.0-34.0); Mean Corpuscular Volume 92.8 fl (81-99); Platelet Count 175 10^3/cmm (130-400); Red Blood Count 3.75 10^6/uL (4.1-5.3); Red Cell Distribution Width 15.2 % (12.1-15.1); White Blood Count 14.8 10^3/uL (4.0-10.0)
[2021-06-12] MEDS: hyDROXYzine 25 mg Capsule 50 MG PO (21:02)
--- NOTE | 2021-06-12 21:14 | PC.NURSE ---
At 2042 pt was observed to be crying and shaking in bed. Stated she was completely fine and then began having a panic attack without warning. Dr. Barros was called and notified at 2046, 50mg Vistaril Q4 PRN was ordered at this time.
[2021-06-13] MEDS: hyDROXYzine 25 mg Capsule 50 MG PO ×2 (01:09→09:14)
[2021-06-13] MEDS: HYDROcodone-acetaminophen 5-325 mg Tablet PO (04:46)
[2021-06-13 05:13] VITALS: BP 105/58; PULSE 68; RESP 16; TEMP 36.7
--- NOTE | 2021-06-13 07:57 | P.DS_ITS ---
Discharge Providers QUARRY EQUIPMENT OPERATOR Date of Admission: 06/10/21 18:50 Date of Discharge: 06/13/21 Attending Provider at Admission: Howie Barros MD Attending Provider at Discharge: Howie Barros MD Primary Care Provider: Howie Barros MD Diagnoses at Discharge Discharge Diagnosis (1) 39 weeks gestation of : Status: Acute (2) Vacuum-assisted vaginal delivery: Status: Acute (3) Shoulder dystocia during labor and delivery: Status: Acute (4) Panic attack as reaction to stress: Status: Acute Reason for Visit Reason for Visit: Induction Hospital Course Hospital Course The patient presented to the hospital for elective induction. She was placed on Cytotec. She was given an epidural. She progressed to complete and had a delivery of a healthy-appearing female infant after shoulder dystocia for less than a minute. The patient's course was relatively unremarkable. At one point she did have a panic attack which responded well to Vistaril. She was unsure what triggered the panic attack. She had been having increased anxiety about delivering her baby because of her previous experience. Otherwise her bleeding was within normal limits. Overall, her pain was well controlled. She did continue to complain of suprapubic pain where suprapubic pressure been placed. There were no other concerns. Information Peripartum Data: Delivery Method: Vaginal Physical Exam Narrative: EXAM NARRATIVE: The patient is alert. She appears comfortable. Her heart has a regular rate and rhythm with no murmurs appreciated. Lungs are clear to auscultation bilaterally. Her fundus is firm and below the umbilicus. Urinary Catheter Management^: Daniel Latex Free: Cath Placed During This Visit: yes Urinary Catheter Date of Insertion: 06/11/21 Urinary Catheter Time of Insertion: 14:00 Discharge Data Data Completed and Pending: Labs from last 24 hours 06/12/21 12:20 WBC 14.8 H RBC 3.75 L Hgb 11.4 L Hct 34.8 L MCV 92.8 MCH 30.4 MCHC 32.8 RDW 15.2 H Plt Count 175 MPV 12.0 H Vitals: Last Vital Signs Temp 98.1 F 06/13/21 05:13 Pulse 68 06/13/21 05:13 Resp 16 06/13/21 05:13 BP 105/58 06/13/21 05:13 Pulse Ox 98 06/12/21 05:15 Discharge Plan Discharge Patient Disposition: Home Condition: Stable Prescriptions: New ibuprofen 800 mg Tablet 800 mg PO TID Qty: 45 RF: 0 hydrocodone-acetaminophen 5-325 mg Tablet 1 tab PO Q6H PRN (Reason: Moderate To Severe Pain) Qty: 20 RF: 0 alprazolam 0.25 mg tablet 0.25 mg PO BID PRN (Reason: anxiety) Qty: 7 RF: 0 Continued kpjecroh-cin-Xi-FA 1 mg Tablet 1 tab PO DAILY RF: 0 sertraline [Zoloft] 100 mg Tablet 100 mg PO DAILY RF: 0 Discharge Orders: Discharge Order (Routine); Ordered 06/13/21 Ordered By: Howie Barros Referrals: Howie Barros MD [Primary Care Provider] - 4-7 days (Please set up a check in 6 weeks.) Discharge Diet: Usual diet Discharge Activity: Limit activity as instructed Patient Instructions: Depression (DC), Caring for Your Baby (DC), Bottle Feeding Your Baby (DC), Preeclampsia and Eclampsia After Delivery (GEN), Vaginal Delivery (DC), Opioid Safety, Abnormal Bleeding Discharge Attestations QUARRY EQUIPMENT OPERATOR Time Spent in Discharge Care*: less than 30 min Specific Discharge Activities: Specific discharge activities: educating patient and educating and/or supporting family/caregiver Coding Level of Care Code Acute Gar[employer] Cutter Machine for Mukul Fwd Diagnoses 39 weeks gestation of Z3A.39 Vacuum-assisted vaginal delivery Z37.9 Shoulder dystocia during labor and delivery O66.0 Panic attack as reaction to stress F41.0; F43.0
[2021-06-13] MEDS: prenatal vitamin Capsule 1 CAP PO (08:20)
[2021-06-13] MEDS: sertraline 50 mg Tablet 100 MG PO (08:20)
[2021-06-13] MEDS: docusate sodium 100 mg Capsule PO (08:20)
[2021-06-13] MEDS: ibuprofen 800 mg tablet PO (08:20)
[2021-06-13 09:30] VITALS: BP 129/82; PULSE 70; RESP 18
== END 2021-06-13 09:50 | disposition home or self-care (01) | DRG 806 ==
PROVIDERS: Admitting Provider Family Medicine; PCP Family Medicine; Visit Provider Family Medicine
DX: O77.0 Labor and delivery complicated by meconium in amniotic fluid (principal); O36.0130 Maternal care for anti-D [Rh] antibodies, third trimester, not applicable or unspecified; Z37.0 Single live birth; O99.344 Other mental disorders complicating childbirth; F41.8 Other specified anxiety disorders; O99.214 Obesity complicating childbirth; O66.0 Obstructed labor due to shoulder dystocia; Z3A.39 39 weeks gestation of pregnancy; O75.89 Other specified complications of labor and delivery; F43.0 Acute stress reaction
CPT/HCPCS: 12345; 36415; 51702; 59025; 59409; 85025; 85027; 99211; J1885; J2270; J2405; J2550; J2795; J3010; J3490

== ENCOUNTER 2021-08-15 17:09 | Emergency (ER) | payer OTHER, SELFPAY ==
[2021-08-15 17:17] VITALS: BP 144/99; PULSE 95; RESP 16; TEMP 37.2; O2SAT 94
--- NOTE | 2021-08-15 17:28 | XRR_ITS ---
PROCEDURE INFORMATION: Exam: XR Chest Exam date and time: 08/15/2021 5:28 PM Age: 26 years old Clinical indication: Fever and shortness of breath; Additional info: SOB, fevers TECHNIQUE: Imaging protocol: XR of the chest. Views: 1 view. COMPARISON: CR XR chest 1V portable [id number] 03/23/2020 6:36 PM FINDINGS: Lungs: Low lung volumes. Mild coarsening of the pulmonary interstitium. No definite focal consolidation. Mild increase in streaky infrahilar airspace opacities. Pleural spaces: Unremarkable. No pleural effusion. No pneumothorax. Heart/Mediastinum: Unremarkable. No cardiomegaly. Bones/joints: Unremarkable. XR/XR chest 1V portable [id number] IMPRESSION: No definite pulmonary consolidation. Low lung volumes with increased streaky lower lung bronchovascular lung markings. Cannot exclude atypical pneumonia.
--- NOTE | 2021-08-15 17:29 | W.ED.COVID ---
HPI - COVID General: Chief Complaint: COVID symptoms Stated Complaint: COUGH, CONJESTION, FEVER, LOSS OF SMELL AND TASTE Time Seen by Provider: 08/15/21 17:14 Source: patient Mode of arrival: ambulatory Limitations: no limitations Triage information: Has fever, cough or shortness of breath. No known COVID + exposure last 14 days History of Present Illness: HPI Narrative: Patient is a nice 26-year-old female who presents to ED today with complaints of a cough, shortness of breath and difficulty breathing. She states approximately 5 days ago she began having what she thought was a stomach bug and states she had a few episodes of vomiting and diarrhea. She states those symptoms have subsided but now she has developed nasal congestion, sinus pain/pressure, a cough, and shortness of breath. She states shortness of breath is worse with any form of exertion and lying flat. Patient is vaccinated for COVID. She did take a home COVID test which was negative. 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 PMH significant for asthma. MD complaint: has COVID symptoms Prior covid testing: no COVID 19 common symptoms: positive fever(s) (101), non-productive cough, dyspnea, body aches, nasal congestion, nausea, vomiting (resolved) and diarrhea (resolved); negative headache(s) or throat pain COVID 19 other sytmptoms: negative chest pain Onset (ago): day(s) Severity: moderate Pertinent comorbid conditions: COPD/respiratory disease (asthma) and obesity Treatment prior to arrival: cold medicine COVID Results: SARS-CoV-2 RNA (RT-PCR) Not detected (NOT DETECTED) 03/23/20 19:30 03/23/20 Review of Systems Const: Reports: fever(s) (101) and body aches Eyes: Denies: change in vision, blurry vision, photophobia or seeing flashes ENMT: Reports: nasal discharge and nasal congestion; Denies: throat pain, odynophagia, ear or mastoid pain, epistaxis or sinus pain Card: Reports: dyspnea on exertion and orthopnea; Denies: chest pain, palpitations, irregular heart rhythm, edema, swelling of feet/ankles, lightheadedness, syncope, pre-syncope, leg pain with exertion or acrocyanosis Resp: Reports: dyspnea, non-productive cough and chest congestion; Denies: stridor or hemoptysis GI: Reports: nausea, vomiting (resolved) and diarrhea (resolved); Denies: abdominal pain : Denies: flank pain or dysuria Musc: Denies: neck pain, back pain, extremity pain or joint pain Skin/Breast: Denies: rash Neuro: Denies: headache(s), numbness in extremities, weakness in extremities, sensory changes or dizziness Physical Exam Const: COMMON NORMALS: no acute distress, patient oriented x3, no limitations and alert GENERAL APPEARANCE: cooperative NUTRITIONAL APPEARANCE: obese ORIENTATION/CONSCIOUSNESS: Yes awake, Yes oriented to person, Yes oriented to place and Yes oriented to time OTHER: looks like she doesn't feel well HENMT: COMMON NORMALS: normocephalic and atraumatic HEAD & SCALP: normal to inspection, normocephalic and atraumatic Resp: COMMON NORMALS: normal respiratory effort and clear to auscultation bilaterally AUSCULTATION: clear to auscultation bilaterally Cardio: COMMON NORMALS: regular rate and regular rhythm RATE: regular rate RHYTHM: regular rhythm Neuro: COMMON NORMALS: patient oriented x3 SENSORIUM/ORIENTATION: Yes alert, Yes oriented to person, Yes oriented to place and Yes oriented to time Course Vital Signs: Vital signs: Vital Signs Temperature 99.0 F 08/15/21 17:45 Pulse Rate 95 08/15/21 17:45 Respiratory Rate 16 08/15/21 17:45 Blood Pressure 144/99 08/15/21 17:45 Pulse Oximetry 94 08/15/21 17:45 MDM - COVID MDM Narrative: Medical decision making narrative: Patient's influenza and PCR COVID are negative. CXR showing possible atypical pneumonia. She will be given IM Rocephin here and be discharged home on amoxicillin and azithromycin for atypical coverage. We will also place on 5 days of dexamethasone. First dose given here prior to discharge and will be given enough medications for tomorrow as it is Park and pharmacies are closed. Strict return to ED precautions given. Lab Data: Labs: Lab Results 08/15/21 08/15/21 08/15/21 17:41 17:41 19:44 Coronavirus 229E ( PCR) Not detected (NOT DETECT) Human Metapneumovi r PCR Detected A (NOT DETECT) Influenza Type A A g Negative (Negative) Influenza Type B A g Negative (Negative) Entero/Rhino (PCR) Not detected (NOT DETECT) SARS-CoV-2 (PCR) Not detected (NOT DETECT) Imaging Data: CXR: Radiologist's impression: [id number] [place], [place] [address]BGqt ReportSigned Patient: Jennifer Amos #: [id number]: 1995Acct#:[id number]/Sex: 26 / FADM Date: 08/15/21Loc: ERRoom/Bed:Attending Dr: Ordering Provider/Ordering MD: Emily Mott Date of Service: 08/15/21 Procedure(s): XR chest 1V portable [id number] Accession Number(s): [id number] Report Number: [id number] PROCEDURE INFORMATION: Exam: XR Chest Exam date and time: 08/15/2021 5:28 PM Age: 26 years old Clinical indication: Fever and shortness of breath; Additional info: SOB, fevers TECHNIQUE: Imaging protocol: XR of the chest. Views: 1 view. COMPARISON: CR XR chest 1V portable [id number] 03/23/2020 6:36 PM FINDINGS: Lungs: Low lung volumes. Mild coarsening of the pulmonary interstitium. No definite focal consolidation. Mild increase in streaky infrahilar airspace opacities. Pleural spaces: Unremarkable. No pleural effusion. No pneumothorax. Heart/Mediastinum: Unremarkable. No cardiomegaly. Bones/joints: Unremarkable. XR/XR chest 1V portable [id number] IMPRESSION: No definite pulmonary consolidation. Low lung volumes with increased streaky lower lung bronchovascular lung markings. Cannot exclude atypical pneumonia. Dictated By:Kris Hernandez By:Kris Hernandez Date/Time:08/15/21 1831DD/ 1728 COVID Results: SARS-CoV-2 RNA (RT-PCR) Not detected (NOT DETECTED) 03/23/20 19:30 03/23/20 Discharge Plan Discharge Patient Disposition: Home Clinical Impression: Atypical pneumonia Condition: Stable Prescriptions: New amoxicillin 500 mg capsule 1,000 mg PO Q8H Qty: 30 RF: 0 azithromycin 250 mg tablet 250 mg PO DAILY 3 Days Qty: 3 RF: 0 dexamethasone 6 mg tablet 6 mg PO DAILY Qty: 4 RF: 0 No Action kjoaxddy-sal-Mg-FA 1 mg Tablet 1 tab PO DAILY RF: 0 sertraline [Zoloft] 100 mg Tablet 100 mg PO DAILY RF: 0 ibuprofen 800 mg Tablet 800 mg PO TID Qty: 45 RF: 0 hydrocodone-acetaminophen 5-325 mg Tablet 1 tab PO Q6H PRN (Reason: Moderate To Severe Pain) Qty: 20 RF: 0 alprazolam 0.25 mg tablet 0.25 mg PO BID PRN (Reason: anxiety) Qty: 7 RF: 0 Discharge Orders: Discharge ED (Routine); Ordered 08/15/21 Ordered By: Emily Mott Referrals: Howie Barros MD [Primary Care Provider] - Patient Instructions: Pneumonia (ED) Activity Restrictions/Additional Instructions: As we discussed your influenza and PCR COVID test was negative. We are treating you for atypical pneumonia which was shown on your chest x-ray. You have received doses of the amoxicillin and azithromycin for today and tomorrow (since pharmacies are closed). I have written you prescription for the remainder of the course. We will also place you on steroids. You may use your albuterol inhaler as needed. Please follow-up with your primary care provider early this week if possible for reevaluation if symptoms do not seem to be improving. Please return to the emergency department for worsening shortness of breath, difficulty breathing, or any other concerns you may have. I hope you begin to feel better soon. Coding Level of Care Code ED Nursing Teacher for Mukul Fwcaroline Exam Expanded Problem Focused
[2021-08-15 17:45] VITALS: BP 144/99; PULSE 95; RESP 16; TEMP 37.2; O2SAT 94
[2021-08-15 18:15] LABS: Influenza A by IFA Negative (Negative); Influenza B by IFA Negative (Negative)
[2021-08-15 19:35] LABS: Adenovirus Not Detected (NOT DETECT); Chlamydia Pneumoniae Not Detected (NOT DETECT); Coronavirus 229E,HKU1,NL63,OC4 Not Detected (NOT DETECT); Human Metapneumovirus Detected (NOT DETECT); Human Rhinovirus/Enterovirus Not Detected (NOT DETECT); Influenza A Not Detected (NOT DETECT); Influenza A H1 Not Detected (NOT DETECT); Influenza A H1-2009 Not Detected (NOT DETECT); Influenza A H3 Not Detected (NOT DETECT); Influenza B Not Detected (NOT DETECT); Mycoplasma Pneumoniae Not Detected (NOT DETECT); Parainfluenza Virus Type 1 Not Detected (NOT DETECT); Parainfluenza Virus Type 2 Not Detected (NOT DETECT); Parainfluenza Virus Type 3 Not Detected (NOT DETECT); Parainfluenza Virus Type 4 Not Detected (NOT DETECT); Respiratory Syncytial Virus A Not Detected (NOT DETECT); Respiratory Syncytial Virus B Not Detected (NOT DETECT); SARS-COV-2 Not Detected (NOT DETECT)
[2021-08-15 19:44] LABS: Human Metapneumovirus Detected (NOT DETECT); Human Rhinovirus/Enterovirus Not Detected (NOT DETECT); Results from Genmark
[2021-08-15] MEDS: amoxicillin 500 mg Capsule 1000 MG PO (20:26)
[2021-08-15] MEDS: promethazine-cod syrup 6.25-10mg/5 mL UDC PO (20:28)
[2021-08-15] MEDS: azithromycin 250 mg Tablet 500 MG PO (20:28)
[2021-08-15] MEDS: cefTRIAXone 1,000 MG in lidocaine 1% 2.1 ML 3 MG IM (20:28)
== END 2021-08-15 20:36 | disposition home or self-care (01) ==
PROVIDERS: Emergency Provider Physician Assistant; PCP Family Medicine
DX: J18.9 Pneumonia, unspecified organism (principal); Z20.822 Contact with and (suspected) exposure to COVID-19
CPT/HCPCS: 71045; 87635; 87801; 87804; 96372; 99283; J0696; Q0144

== ENCOUNTER → 2021-12-26 15:50 | Outpatient (BNVA) | payer OTHER, SELFPAY | PROVIDERS: PCP Family Medicine; Visit Provider Obstetrics & Gynecology | DX: N91.2 Amenorrhea, unspecified (principal) | CPT/HCPCS: 83001; 84146; 84443; 84702 ==

== ENCOUNTER → 2022-07-14 08:30 | Outpatient (BNVA) | payer OTHER, SELFPAY | PROVIDERS: PCP Family Medicine; Visit Provider Obstetrics & Gynecology | DX: Z30.9 Encounter for contraceptive management, unspecified (principal); Z30.430 Encounter for insertion of intrauterine contraceptive device | CPT/HCPCS: 81025 ==

== ENCOUNTER 2023-03-30 10:41 | Day surgery (SDC) | payer OTHER, SELFPAY ==
[2023-03-29 08:13] VITALS: BMI 39.4
--- NOTE | 2023-03-29 08:40 | ANES.PREANE2 ---
Pre-Anesthetic Assessment Height/Weight: Height 1.63 m Weight 104.326 kg Operation Date: 03/30/23 12:10 Proposed Procedures p Laparoscopic bilateral salpingectomy 58028,Z30.2(Bilateral) - Barron Mcgill MD Familial anesthetic complications: None Was Beta Rj taken within 24 hours: N/A Was Clonidine taken within 24 hours: N/A Social No alcohol and No tobacco Exam alert, oriented x 3, clear to auscultation bilaterally and regular rate & rhythm Airway Mallampati: Class I Dentition: full Pulmonary Asthma (inhaler use couple times a week in summer) Anesthetic Plan ASA status: 1 Anesthesia: General Risk of > 500 ml blood loss (7ml/kg in children): No Medications/Allergies Home Medications Medication Instructions Recorded Confirmed Last Taken Type lamotrigine 200 mg tablet 200 mg PO DAILY 07/14/22 03/29/23 03/28/23 History (Lamictal) dextroamphetamine-amphetamine 20 20 mg PO BID 03/25/23 03/29/23 03/28/23 History mg tablet (Adderall) levonorgestrel 21 mcg/24 hours (8 intrauterine 03/25/23 03/25/23 03/28/23 History yrs) 52 mg intrauterine device (Mirena) Allergies Allergy/AdvReac Type Severity Reaction Status Date / Time latex Allergy ADR-Itching Verified 03/29/23 08:14 [facility] Anesthesia Family History (Updated 12/26/21 @ 14:42 by Angélica Barry RN) Mother Diabetes Hyperlipidemia Hypertension Heart disease Grandmother Stroke maternal Denies family history of Colon cancer Ovarian cancer Clotting disorder Breast cancer Anesthesia complication Bleeding disorder Uterine cancer Thyroid condition Data Anesthesia Cardiac Studies: No Data to Display
[2023-03-29 08:42] LABS: Add Urine Microscopic? NO; Charge for UA Resulting for Rev
[2023-03-29 08:46] LABS: Basophils # 0.1 10^3/uL (0.0-0.1); Eosinophils # 0.2 10^3/uL (0.0-0.8); Eosinophils % 2.9 %; Hematocrit 39.7 % (37.0-47.0); Hemoglobin 12.9 g/dL (11.5-15.3); Lymphocytes # 2.4 10^3/uL (0.8-4.8); Lymphocytes % 29.1 %; Mean Corpuscular HGB Conc 32.5 g/dL (30.0-36.0); Mean Corpuscular Hemoglobin 29.6 pg (28.0-34.0); Mean Corpuscular Volume 91.1 fl (81-99); Mean Platelet Volume 10.1 fL (7.4-10.4); Monocytes # 0.6 10^3/uL (0.2-0.9); Neutrophils # 4.86 10^3/uL (1.8-7.7); Neutrophils % 59.8 %; Nucleated Red Blood Cells % 0 %; Platelet Count 372 10^3/cmm (130-400); Red Blood Count 4.36 10^6/uL (4.1-5.3); Red Cell Distribution Width 12.8 % (12.1-15.1); White Blood Count 8.1 10^3/uL (4.0-10.0)
[2023-03-29 08:50] LABS: Bilirubin Urine Neg (Negative); Blood Urine Neg (Negative); Glucose Urine UA Norm (Normal); Ketones Urine Negative (Negative); Leukocyte Esterase Urine Negative (Negative); Nitrate Urine Negative (Negative); Protein Urine Neg (Negative); Specific Gravity, Urine 1.025 (1.005-1.030); Urine Appearance Clear (CLEAR); Urine Color Yellow (Yellow); Urobilinogen Urine 1 mg/dL (Negative); pH Urine 5 (5-7)
[2023-03-29 09:23] LABS: Alanine Aminotransferase 15 U/L (0-33); Albumin Level 4.3 g/dL (3.5-5.2); Alkaline Phosphatase 66 U/L (35-105); Aspartate Amino Transferase 18 U/L (0-32); Blood Urea Nitrogen 10 mg/dL (6-20); Calcium 9.1 mg/dL (8.5-10.5); Carbon Dioxide 25 mmol/L (22-29); Chloride 104 mmol/L (98-107); Globulin 3.3 g/dL (1.3-4.6); Glomerular Filtration Rate 101.1 mL/min (90-130); Glucose 90 mg/dL (65-115); Osmolality Calculated 293 mOsm/kg (285-295); Sodium 142 mmol/L (136-145); Total Bilirubin 0.6 mg/dL (0.15-1.2); Total Protein 7.6 g/dL (6.6-8.7)
[2023-03-29 09:32] LABS: Anion Gap 17.1 (5-19); Potassium 4.1 mmol/L (3.5-5.1)
[2023-03-30] VITALS (8 sets, daily range): BP systolic 115–135; BP diastolic 61–85; PULSE 75–93; RESP 14–20; TEMP 36.1–36.9; O2SAT 95–99
[2023-03-30] MEDS: sodium chloride 0.9% 1,000 ML 30 ML IV (11:09)
[2023-03-30] MEDS: sodium chloride 0.9% 500 ML IV (11:11)
[2023-03-30] MEDS: scopolamine 1.5 Patch 1 PATCH TRANSDERMA (11:16)
[2023-03-30] MEDS: midazolam 1 mg/mL INJ 2 mL 2 MG IVP (11:26)
[2023-03-30 11:36] LABS: OR HCG Qualitative Urine Negative (Negative)
--- NOTE | 2023-03-30 11:56 | P.ANESUD_ITS ---
Pre-Anesthetic Update Pre-Anesthetic Assessment: Date of Surgery/Procedure: 03/30/23 Preop Janeth gnosis: desire permanent sterilization Proposed Procedure: Operation Date: 03/30/23 12:10 Proposed Procedures p Laparoscopic bilateral salpingectomy 37826,Z30.2(Bilateral) - Barron Mcgill MD Any changes to Pre-Anesthetic Assessment?: No Last Intake: Intake Last Liquid Date 03/29/23 Last Liquid Time 22:30 Last Solid Date 03/29/23 Last Solid Time 22:30 Labs Last 48hrs: Short CBC 03/29/23 Range/Units 08:15 WBC 8.1 (4.0-10.0) 10^3/ uL Hgb 12.9 (11.5-15.3) g/dL Hct 39.7 (37.0-47.0) % MCV 91.1 (81-99) fl Plt Count 372 (130-400) 10^3/c mm Neut % (Auto) 59.8 % Neut # (Auto) 4.86 (1.8-7.7) 10^3/u L BMP 03/29/23 08:15 Sodium 142 Potassium 4.1 Chloride 104 Carbon Dioxide 25 BUN 10 Creatinine 0.7 Glucose 90 Calcium 9.1 Liver Function 03/29/23 Range/Units 08:15 Total Bilirubin 0.6 (0.15-1.2) mg/dL AST 18 (0-32) U/L ALT 15 (0-33) U/L Alkaline Phosphata se 66 (35-105) U/L Albumin 4.3 (3.5-5.2) g/dL Urine 03/29/23 Range/Units 08:15 Urine Color Yellow (Yellow) Urine Appearance Clear (CLEAR) Urine pH 5 (5-7) Ur Specific Gravit y 1.025 (1.005-1.030) Urine Protein Neg (Negative) Urine Glucose (UA) Norm (Normal) Urine Ketones Negative (Negative) Urine Nitrate Negative (Negative) Urine Bilirubin Neg (Negative) Ur Leukocyte Yulisa ase Negative (Negative) Blood Bank 03/29/23 08:15 Blood Type O Negative Rho(D) Type Negative Antibody Screen Negative Vitals: Temperature 98.5 F 03/30/23 10:46 Temperature Source Temporal Artery S can 03/30/23 10:46 Pulse Rate 93 03/30/23 10:46 Respiratory Rate 16 03/30/23 10:46 Blood Pressure 125/68 03/30/23 10:46 Blood Pressure Radha n 87 03/30/23 10:46 Pulse Oximetry 97 03/30/23 10:46 Oxygen Delivery Me thod Room Air 03/30/23 10:58 Exam: Pre-Anes Outpt Exam: alert, oriented x 3, clear to auscultation bilaterally and regular rate & rhythm Cardiac Studies: No Data to Display
--- NOTE | 2023-03-30 11:59 | W.PM.OPSUD ---
Surgery/Procedure H&P Update DATE OF PROCEDURE: March 30, 2023 DATE H&P PERFORMED: 03/25/23 H&P UPDATE INFORMATION: I have reviewed H&P completed within last 30 days, I have examined patient prior to procedure and No changes to prior documentation PREOP DIAGNOSIS: desire permanent sterilization PLANNED PROCEDURE: Operation Date: 03/30/23 12:10 Proposed Procedures p Laparoscopic bilateral salpingectomy 80927,Z30.2(Bilateral) - Barron Mcgill MD
[2023-03-30] MEDS: ceFAZolin 2,000 MG in sodium chloride 0.9% (plus) 50 ML 100 MG IV (12:11)
[2023-03-30] MEDS: BUPivacaine 0.5% INJ 10 mL INJECTION (13:13)
--- NOTE | 2023-03-30 13:34 | PM.OP ---
Operative Report Date of procedure: March 30, 2023 Pre-op diagnosis: Preop Diagnosis desire permanent sterilization Post-op diagnosis: Same Post-op findings: Intrauterine Mirena IUD Procedure done: Laparoscopic bilateral salpingectomy. Mirena IUD removal Specimens removed/disposition: Left and right fallopian tubes. Mirena IUD Surgeon: Barron Mcgill MD Estimated blood loss (mL): 5 IV fluids (mL): 1,000 Urine output (mL): 100 Complications: None Procedure: After informed consent, the patient was taken to the operating room where general anesthesia was administered. She was placed in the dorsal lithotomy position and prepped and draped in sterile fashion. Pre-Procedure Time-Out verifying the correct patient identity, correct procedure verified with consent, correct site and side, correct patient position, availability of correct implants and any special equipment or requirements was performed and acknowledge by the OR team. The patient was examined under anesthesia and found to have a normal uterus with normal adnexa. A weighted speculum was placed in the vagina, and the anterior lip of cervix was grasped with the single toothed tenaculum. IUD strings was noted, with ring forcep the strings were grasped and the IUD was removed. Uterine sound was used to measure uterine cavity to 8 cm. A uterine manipulator was advanced into the endocervical canal and uterus. The tenaculum was removed after uterine manipulator was secured. The speculum was removed from the vagina. An intraumbilical incision was made with a scalpel. While tenting up on the abdomen, a Verres needle was admitted into the intra-abdominal cavity. A saline drop test was performed and noted to be within normal limits. Pneumoperitoneum was attained with 4 liters of carbon dioxide. The Verres needle was removed. A 5 mm Opitc view trocar and sleeve were admitted into the abdomen and laparoscopic confirmation of location was achieved. A second incision was made 3 cm above the symphysis pubis, and a 5 mm trocar sleeves were admitted into the abdomen under direct laparoscopic visualization without complication. A survey revealed normal abdominal anatomy. A 5 mm blunt probe was advanced through the second trocar sleeve, and light manipulation of ovaries and uterus to assess the posterior aspects was performed. The pelvic survey shows normal uterus, left and right adnexa. The right ovary was noted with a follicular cyst. The patient was placed into Trendelenburg position. The fallopian tubes were inspected bilaterally and the fimbriated ends of the fallopian tubes were visualized bilaterally. Attention was then directed to the right side. The fallopian tube and mesosalpinx were grasped and the underlying mesosalpinx was cauterized and cut using the Ligasure device. Serial cauterization and cutting was used to separate the fallopian tube from the underlying mesosalpinx until it could be amputated cutting it approximated 2 cm from the cornua. Attention was then turned to the contralateral fallopian tube, which was removed in similar fashion. Both specimens were removed through the trocar and sent to pathology. The instruments were removed. The suprapubic trocar port was removed under direct visualization insuring good hemostasis. The carbon dioxide was allowed to escape from the abdomen. The intraumbilical trocar sleeve was withdrawn under visualization with laparoscope in the sleeve to insure hemostasis. The skin incisions were closed with 3-O Monocryl subcuticular stich and Dermabond. The instruments were removed from the vagina, and excellent hemostasis was noted. The patient tolerated the procedure well, and sponge, lap and needle count were correct times two. The patient was taken to the recovery room in good condition.
--- NOTE | 2023-03-30 14:06 | ANE.PACU2 ---
Inpatient post-anesthesia follow up: Airway intact: Yes Vital signs: Temperature 97.3 F Pulse Rate 79 Respiratory Rate 17 Blood Pressure 135/69 Pulse Oximetry 98 Oxygen Delivery Me thod Room Air Oxygen Flow Rate 6 Fraction of Inspir ed Oxygen Hydration adequate: Yes Nausea and vomiting: No Pain level: 1 Mental status: Baseline
[2023-03-30] MEDS: HYDROcodone-acetaminophen 5-325 mg Tablet 1 TAB PO (14:23)
== END 2023-03-30 14:33 | disposition home or self-care (01) ==
PROVIDERS: PCP Family Medicine; Visit Provider Obstetrics & Gynecology
PROC: (CPT 58661; principal; 2023-03-30 12:00)
DX: Z30.2 Encounter for sterilization (principal)
CPT/HCPCS: 58661; 36415; 80053; 81003; 81025; 84703; 85025; 86850; 86900; 88302; J0690; J1100; J1170; J2250; J2405; J2704; J2710; J3010; J3490; J7030; J7040

== ENCOUNTER → 2024-06-01 12:59 | Outpatient (BNVA) | payer OTHER, SELFPAY | PROVIDERS: PCP Family Medicine; Visit Provider Nurse Practitioner Women's Health | DX: Z00.00 Encounter for general adult medical examination without abnormal findings (principal); R30.0 Dysuria | CPT/HCPCS: 81000; 88175 ==

== ENCOUNTER → 2024-08-31 08:27 | Outpatient (BNVA) | payer OTHER, SELFPAY | PROVIDERS: PCP Family Medicine; Visit Provider Obstetrics & Gynecology | DX: N81.10 Cystocele, unspecified (principal); N81.6 Rectocele; N39.3 Stress incontinence (female) (male); N81.2 Incomplete uterovaginal prolapse | CPT/HCPCS: 80053; 81001; 81025; 85025 ==

== ENCOUNTER 2024-09-05 10:14 | Observation (INO) | payer OTHER, SELFPAY ==
[2024-08-31 10:43] LABS: Basophils # 0.1 10^3/uL (0.0-0.1); Basophils % 1.1 %; Eosinophils # 0.4 10^3/uL (0.0-0.8); Eosinophils % 4.4 %; Hematocrit 39.3 % (36-47); Lymphocytes # 2.1 10^3/uL (0.8-4.8); Lymphocytes % 24.5 %; Mean Corpuscular HGB Conc 33.1 g/dL (30-55); Mean Corpuscular Hemoglobin 29.6 pg (27-33); Mean Corpuscular Volume 89.5 fl (85-98); Mean Platelet Volume 10.2 fL (7.4-10.4); Monocytes # 0.5 10^3/uL (0.2-0.9); Monocytes % 5.5 %; Neutrophils # 5.46 10^3/uL (1.8-7.7); Neutrophils % 64.3 %; Nucleated Red Blood Cells % 0 %; Platelet Count 303 10^3/cmm (157-399); Red Blood Count 4.39 10^6/uL (3.85-5.65); Red Cell Distribution Width 13.1 % (12.1-15.1); White Blood Count 8.49 10^3/uL (3.29-11.43)
[2024-08-31 10:51] LABS: Bilirubin Urine 1+ (Negative); Blood Urine Negative (Negative); Glucose Urine UA Negative (Normal); Ketones Urine Trace (Negative); Leukocyte Esterase Urine Negative (Negative); Nitrate Urine Negative (Negative); Protein Urine Trace (Negative); Urine Appearance Clear (CLEAR); Urine Color Dark Yellow (Yellow)
[2024-08-31 10:56] LABS: Add Urine Microscopic? YES; Bacteria Urine None Seen /hpf; Hyaline Casts Urine 1.65 /lpf; RBC Urine 0-2 /hpf (0-2); Squamous Epithelial Cell Urine 0-5 /hpf (0-5); WBC Urine 0-5 /hpf (0-5)
[2024-08-31 10:57] LABS: Specific Gravity, Urine 1.032 (1.005-1.030)
[2024-08-31 10:58] LABS: Add Urine Culture? No
[2024-08-31 11:01] LABS: Alanine Aminotransferase 14 U/L (0-33); Albumin Level 4.5 g/dL (3.5-5.2); Alkaline Phosphatase 69 U/L (35-105); Anion Gap 13.6 (5-19); Aspartate Amino Transferase 14 U/L (0-32); Blood Urea Nitrogen 9 mg/dL (6-20); Calcium 9.1 mg/dL (8.5-10.5); Carbon Dioxide 27 mmol/L (22-29); Chloride 102 mmol/L (98-107); Glomerular Filtration Rate 119.9 mL/min (90-130); Glucose 82 mg/dL (65-115); Osmolality Calculated 286 mOsm/kg (285-295); Potassium 3.6 mmol/L (3.5-5.1); Sodium 139 mmol/L (136-145); Total Bilirubin 0.3 mg/dL (0.15-1.2); Total Protein 7.5 g/dL (6.6-8.7)
--- NOTE | 2024-08-31 11:25 | ANES.PREANE2 ---
Pre-Anesthetic Assessment Height/Weight: Height 1.63 m Operation Date: 09/05/24 13:20 Proposed Procedures p Total Vaginal Hysterectomy 56875, 34520, 54860, N81.10, N81.6(Not Applicable) - Barron Mcgill MD s Sling Single Incision Midurethral Sling(Not Applicable) - MD imani Huynh Anterior Repair Anterior Colporrhaphy(Not Applicable) - MD imani Huynh Allograft Allograft Augmentation(Not Applicable) - MD imani Huynh Posterior Repair Posterior Colporrhaphy(Not Applicable) - Barron Mcgill MD Familial anesthetic complications: PONV Was Beta Rj taken within 24 hours: N/A Was Clonidine taken within 24 hours: N/A Social No alcohol and No tobacco Exam alert, oriented x 3, clear to auscultation bilaterally and regular rate & rhythm Airway Submandibular: within normal limits Cervical ROM: within normal limits Mallampati: Class II Dentition: full Neuropsych Anxiety Anesthetic Plan ASA status: 2 Anesthesia: General (TIVA) Medications/Allergies Home Medications Medication Instructions Recorded Confirmed Last Taken Type lamotrigine 200 mg tablet 200 mg PO DAILY 07/14/22 08/31/24 08/30/24 History (Lamictal) dextroamphetamine-amphetamine 20 20 mg PO BID 03/25/23 08/31/24 08/31/24 History mg tablet (Adderall) acetaminophen 325 mg capsule 325 mg PO Q4H PRN fever or 03/30/23 08/31/24 Unknown Rx postoperative pain #60 caps Allergies Allergy/AdvReac Type Severity Reaction Status Date / Time latex Allergy ADR-Itching Verified 08/31/24 10:15 [facility] Anesthesia Medical History No pertinent past medical history neghx: htn,dm,thyroid,dvt/pe PCP: Dr. Barros Surgical History H/O bilateral salpingectomy (~2022) Albino-- at [facility] Family History Mother Diabetes Hyperlipidemia Hypertension Heart disease Grandmother Stroke maternal Denies family history of Colon cancer Ovarian cancer Clotting disorder Breast cancer Anesthesia complication Bleeding disorder Uterine cancer Thyroid disease Social History Smoking and tobacco/nicotine status: never used tobacco/nicotine Data Anesthesia 08/31/24 10:20 08/31/24 10:20 Short CBC 08/31/24 Range/Units 10:20 WBC 8.49 (3.29-11.43) 10^3/uL Hgb 13.00 (11.27-16.99) g/dL Hct 39.3 (36-47) % MCV 89.5 (85-98) fl Plt Count 303 (157-399) 10^3/cmm Neut % (Auto) 64.3 % Neut # (Auto) 5.46 (1.8-7.7) 10^3/uL BMP 08/31/24 10:20 Sodium 139 Potassium 3.6 Chloride 102 Carbon Dioxide 27 BUN 9 Creatinine 0.6 Glucose 82 Calcium 9.1 Liver Function 08/31/24 Range/Units 10:20 Total Bilirubin 0.3 (0.15-1.2) mg/dL AST 14 (0-32) U/L ALT 14 (0-33) U/L Alkaline Phosphatase 69 (35-105) U/L Albumin 4.5 (3.5-5.2) g/dL Urine 08/31/24 Range/Units 10:20 Urine Color Dark yellow A (Yellow) Urine Appearance Clear (CLEAR) Urine pH 6.0 (5-7) Ur Specific [place] 1.032 H (1.005-1.030) Urine Protein Trace A (Negative) Urine Glucose (UA) Negative (Normal) Urine Ketones Trace (Negative) Urine Nitrate Negative (Negative) Urine Bilirubin 1+ H (Negative) Ur Leukocyte Esterase Negative (Negative) Urine RBC 0-2 (0-2) /hpf Urine WBC 0-5 (0-5) /hpf Cardiac Studies: No Data to Display
[2024-08-31 20:39] LABS: OR HCG Qualitative Urine Negative (Negative)
[2024-09-05] VITALS (21 sets, daily range): BP systolic 86–139; BP diastolic 31–74; PULSE 64–99; RESP 16–18; TEMP 36.4–37; O2SAT 93–100; BMI 37.8
--- NOTE | 2024-09-05 06:41 | P.ANESUD_ITS ---
Pre-Anesthetic Update Pre-Anesthetic Assessment: Date of Surgery/Procedure: 09/05/24 Preop Janeth gnosis: Cystocele, rectocele, LAUREN, uterus descend Proposed Procedure: Operation Date: 09/05/24 07:00 Proposed Procedures p Total Vaginal Hysterectomy 20452, 66092, 13893, N81.10, N81.6(Not Applicable) - Barron Mcgill MD s Sling Single Incision Midurethral Sling(Not Applicable) - Barron Mcgill MD s Anterior Repair Anterior Colporrhaphy(Not Applicable) - Barron Mcgill MD s Allograft Allograft Augmentation(Not Applicable) - Barron Mcgill MD s Posterior Repair Posterior Colporrhaphy(Not Applicable) - Barron Mcgill MD Changes from Pre-Anesthetic Assessment: No change since she was last seen by anesthesia. PONV noted. Will run TIVA and give Decadron/Zofran. Plan for general anesthesia Vitals: Temperature 97.7 F 09/05/24 06:13 Temperature Source Temporal Artery S can 09/05/24 06:13 Pulse Rate 79 09/05/24 06:13 Respiratory Rate 17 09/05/24 06:13 Blood Pressure 111/74 09/05/24 06:13 Blood Pressure Radha n 86 09/05/24 06:13 Pulse Oximetry 100 09/05/24 06:13 Oxygen Delivery Me thod Room Air 09/05/24 06:13 Cardiac Studies: No Data to Display
[2024-09-05] MEDS: scopolamine 1 mg PATCH 1 PATCH TRANSDERMA (06:45)
[2024-09-05] MEDS: sodium chloride 0.9% 1,000 ML 30 ML IV (06:45)
[2024-09-05] MEDS: metroNIDAZOLE IV 500 MG/100 ML PREMIX 100 MG IV (06:46)
--- NOTE | 2024-09-05 07:02 | W.PM.OPSUD ---
Surgery/Procedure H&P Update DATE OF PROCEDURE: September 05, 2024 DATE H&P PERFORMED: 08/31/24 H&P UPDATE INFORMATION: I have reviewed H&P completed within last 30 days, I have examined patient prior to procedure and No changes to prior documentation PREOP DIAGNOSIS: Cystocele, rectocele, LAUREN, uterus descend PLANNED PROCEDURE: Operation Date: 09/05/24 07:00 Proposed Procedures p Total Vaginal Hysterectomy 02763, 26796, 51461, N81.10, N81.6(Not Applicable) - Barron Mcgill MD s Sling Single Incision Midurethral Sling(Not Applicable) - Barron Mcgill MD s Anterior Repair Anterior Colporrhaphy(Not Applicable) - Barron Mcgill MD s Allograft Allograft Augmentation(Not Applicable) - MD imani Huynh Posterior Repair Posterior Colporrhaphy(Not Applicable) - Barron Mcgill MD
[2024-09-05] MEDS: ceFAZolin 2,000 mg SDV 2000 MG IVP (07:03)
[2024-09-05] MEDS: lidocaine-epi 2% PF 1:200,000 20 mL SDV 40 ML XX (08:18)
[2024-09-05] MEDS: tranexamic acid 1,000 mg/10mL SDV 1000 MG IV (08:45)
--- NOTE | 2024-09-05 10:00 | PM.OP ---
Operative Report Date of procedure: September 05, 2024 Pre-op diagnosis: Cystocele Rectocele Uterine prolapse Stress urinary Post-op diagnosis: same Procedure done: Total vaginal hysterectomy Anterior colporrhaphy Mid urethral sling Posterior colporrhaphy Cystoscopy Implants: Coloplast Altis sling Specimens removed/disposition: Uterus Surgeon: Barron Mcgill MD Estimated blood loss (mL): 1,000 IV fluids (mL): 1,500 Urine output (mL): 100 Complications: Bleeding Procedure: After obtaining informed consent, the patient was taken to the operating room and placed in the supine position, given general anesthesia, and prepped and draped in sterile fashion. The abdomen, vulva and vagina were prepped and draped in a sterile manner. The pre-procedure timeout verifying the correct patient, procedure, site and side, could not requirements was performed and acknowledge by the OR team. A Daniel catheter was placed. A Bookwalter vaginal retractor was placed into the vagina in usual manner visualize the cervix. Cervix was grasped with a single tooth tenaculum and circumferentially infiltrated with 2% lidocaine with epinephrine. Then cervix was circumferentially incised with bovie and the bladder was dissected off the pubovesical cervical fascia anteriorly with a sponge stick and Metzenbaum scissors. The anterior peritoneal reflection was identified and the anterior cul-de-sac was entered sharply with Metzenbaum scissors. The same procedure was performed posteriorly and a posterior colpotomy was made through the posterior cul-de-sac space without difficulty and the posterior blade of the Bookwalter vaginal retractor was advanced posteriorly into the cul-de-sac. At this time, the left and right uterosacral ligaments were isolated and ligated with 0 Vicryl. The LigaSure device was placed over the uterosacral ligaments on either side and was then used in a serial fashion up through the cardinal ligaments bilaterally cross-clamped, cut, and sealed with the LigaSure device. Finally, the uterine arteries were cross-clamped, cut, sealed and ligated with the LigaSure device. Hemostasis was assured. The broad ligaments were then serially clamped, sealed and cut with the LigaSure device on both sides. Excellent hemostasis was visualized. Both cornua were clamped, sealed and cut with the LigaSure device. Then the pedicles were then suture ligated with excellent hemostasis. The uterus was excised and submitted for pathologic evaluation. No other abnormalities were noted in the pelvic cavity. Good hemostasis was assure on both sides. The peritoneum was then closed in a pursestring fashion with 0 Vicryl suture. The vaginal cuff angles were closed with [id number] #0 Vicryl suture on both sides and transfixed with the ipsilateral cardinal and uterosacral ligaments. The remainder of the vaginal cuff was closed with #0 Vicryl in a running locked fashion. Due to oozing bleeding TXA was given. Then proceeded to perform the mid urethral sling and anterior vaginal wall repair. A vertical midline incision was made beneath the midurethra, nearly 1.5 cm length. Careful submucosal dissection was performed bilaterally up to the interior portion of the inferior pubic ramus. The insertion of adductor longus tendon on the patient?s pubic ramus was identified as reference land phillip. Palpated the notch along the internal edge of ischiopubic ramus where the adductor longus tendon and the inferior pubic ramus meet. The Altis single incision sling (SIS) was selected. Then the needle of the SIS inserted aiming at the location of this notch. One of the integrated self-fixating tips place onto the needle by sliding it over the end of the needle. The needle/sling assembly was inserted toward the location of identified reference notch making sure that the flat of the handle is perpendicular to the desired path. The needle was tracked along the posterior surface of the ischiopubic ramus until the midline phillip on the mesh is approximately at the midline position under the urethra. The needle was removed and the same was repeated on the contralateral side until the appropriate sling tension under the urethra was achieved ensuring that the mesh lays flat. The needle was removed and vaginal incision was closed in a running interlocking fashion with 2-0 Vicryl. An anterior repair was then performed. The medial portion of the anterior vaginal wall was grasped with two Allis clamps and the mucosa was infiltrated with the previous vasopressin solution. The Metzenbaum scissors were used to dissect and undermine a plane medially up to the point of reflexion anteriorly of the bladder. The vaginal mucosa was incised medially. This tissue was then grasped with Katelynn clamps and dissected away with a combination of sharp and blunt dissection on both sides. A suture of 2-0 vicryl was then used to connect the lateral pubovesical connective tissue on either side together in a series of bites that was repeated in two layers. The excess vaginal mucosa was trimmed and the incision repaired with a locked suture of 0 vicryl. Proceeded to perform the posterior wall vaginal repair. A dilute 2% lidocaine with epinephrine solution was infiltrated under the posterior vaginal mucosa midline and into the perineal body. An inverted triangle/adam of skin / transverse incision was cut in the perineum. The posterior vaginal wall was opened vertically and midline up to the apex of the rectocele. The cut edges were held and splayed laterally with a series of Allis/Kochers/T-clamps. The open vaginal mucosa was then dissected laterally with a combination of sharp and blunt dissection, exposing the perirectal fascia. The perirectal fascia was then reapproximated with interrupted #2-0 Vicryl sutures to draw the lateral folds together and tuck the rectocele back. Deep interrupted sutures of #0 Vicryl were used to reapproximate the fibers of the levator ani muscles. The excess vaginal mucosa was trimmed. The posterior vaginal wall was closed with a running locked #0 Vicryl to the hymenal tags. The superficial perineal muscles were closed with running unlocked #0 Vicryl and the perineal skin was closed with running subcuticular #2-0 Vicryl. Bludigo was given IV. Then the Daniel catheter was removed and cystoscope was inserted. The bladder was filled with sterile water. Complete evaluation of the bladder mucosa was performed noting no lacerations, dimpling, tears, bleeding of the mucosa or muscular layers. Both ureteral orifices were identified. Prompt excretion of blue urine from both ureteral orifices was noted. Cystoscope was withdrawn. The Daniel catheter was replaced. Excellent hemostasis was obtained. A vaginal pack is placed overnight as postoperative support for the vaginal tissues after graft placement and closure of vaginal incisions. Sponge, lap, needle, and instrument counts were correct times three. The patient was taken to the recovery room, awake and in stable condition.
[2024-09-05] MEDS: fentaNYL 50 mcg/mL INJ 2mL IVP (10:20)
[2024-09-05] MEDS: ondansetron 2 mg/ML SDV 2 mL 4 MG IVP (10:25)
--- NOTE | 2024-09-05 10:37 | ANE.PACU2 ---
Inpatient post-anesthesia follow up: Airway intact: Yes Vital signs: Temperature 97.5 F Pulse Rate 91 Respiratory Rate 17 Blood Pressure 139/62 Pulse Oximetry 95 Oxygen Delivery Me thod Room Air Oxygen Flow Rate 8 Fraction of Inspir ed Oxygen Hydration adequate: Yes Nausea and vomiting: No Pain level: 1 Mental status: Baseline
[2024-09-05] MEDS: ketorolac 30 mg/mL INJ IVP ×3 (10:46→22:29)
[2024-09-05] MEDS: fentaNYL 50 mcg/mL INJ 2mL 100 MCG (10:51)
[2024-09-05] MEDS: HYDROmorphone 1 mg/mL INJ 1 mL 0.5 MG IVP (11:50)
[2024-09-05] MEDS: sodium chloride 0.9% 1,000 ML 125 ML IV ×2 (12:37→22:31)
[2024-09-05] MEDS: phenazopyridine 100 mg Tablet PO ×2 (12:38→22:29)
[2024-09-05] MEDS: oxyCODONE-APAP 10-325 mg Tablet PO ×2 (14:55→20:59)
[2024-09-05] MEDS: docusate sodium 100 mg Capsule PO (21:00)
[2024-09-06 01:38] VITALS: RESP 16
[2024-09-06] MEDS: oxyCODONE-APAP 10-325 mg Tablet PO ×2 (01:38→07:33)
[2024-09-06 05:24] LABS: Hematocrit 26.3 % (36-47); Mean Corpuscular HGB Conc 32.7 g/dL (30-55); Mean Corpuscular Hemoglobin 29.7 pg (27-33); Mean Corpuscular Volume 90.7 fl (85-98); Mean Platelet Volume 10.3 fL (7.4-10.4); Platelet Count 251 10^3/cmm (157-399); Red Cell Distribution Width 13.2 % (12.1-15.1); White Blood Count 10.84 10^3/uL (3.29-11.43)
[2024-09-06 07:33] VITALS: RESP 16
[2024-09-06] MEDS: docusate sodium 100 mg Capsule PO (07:34)
--- NOTE | 2024-09-06 08:34 | PM.OBGYDC ---
Discharge Providers SAND MIXER OPERATOR Date of Admission: 09/05/24 10:14 Date of Discharge: 09/06/24 Attending Provider at Admission: Barron Mcgill MD Attending Provider at Discharge: Barron Mcgill MD Primary Care Provider: Howie Barros MD Reason for Visit Reason for Visit: N81.6 Hospital Course Hospital Course Mrs. Walker 29-year-old female with a history of uterine prolapse, cystocele and stress incontinence admitted for planned total vaginal hysterectomy with anterior colporrhaphy, mid urethral sling and posterior colporrhaphy. The procedures were performed, complicated by bleeding. Postop observation was uneventful. She is afebrile and hemodynamically stable postoperative day 1. Tolerating diet well. Ambulating without difficulty. PVR within normal limits. She was counseled regarding pelvic rest for 6 weeks (no sex, no tampons, no vaginal douches). Return to the emergency room if any fever, increased bleeding or pain. Physical Exam Narrative: GA: Alert and oriented ?3. HEENT: WNL. Heart: Regular rate and rhythm. Lungs: Clear to auscultation bilaterally. Abdomen: Bowel sounds present, nontender. GROUND INTELLIGENCE OFFICER: spotting bleeding. Extremities: No edema, no cyanosis, no calves pain. Urinary Catheter Management: Daniel: Cath Placed During This Visit: yes, but has since been removed by the nurse Reason for Continuing Indwelling Catheter: Decision to DC Catheter Urinary Catheter Date of Insertion: 09/05/24 Urinary Catheter Time of Insertion: 07:31 Date Urinary Catheter Removed: 09/06/24 Time Urinary Catheter Discontinued: 04:55 History History History 2 Term 2 0 Miscarriages/Ectopic 0 Living Children 2 Discharge Data Studies Completed and Pending Pending at discharge Category Date Time Status Pathology: Surgical [PTH] Routine Pth 09/05/24 08:26 Received Laboratory Results WBC 10.84 10^3/uL (3.29-11.43) 09/06/24 05:12 RBC 2.90 10^6/uL (3.85-5.65) L 09/06/24 05:12 Hgb 8.60 g/dL (11.27-16.99) L 09/06/24 05:12 Hct 26.3 % (36-47) L 09/06/24 05:12 MCV 90.7 fl (85-98) 09/06/24 05:12 MCH 29.7 pg (27-33) 09/06/24 05:12 MCHC 32.7 g/dL (30-55) 09/06/24 05:12 RDW 13.2 % (12.1-15.1) 09/06/24 05:12 Plt Count 251 10^3/cmm (157-399) 09/06/24 05:12 MPV 10.3 fL (7.4-10.4) 09/06/24 05:12 Neut % (Auto) 64.3 % 08/31/24 10:20 Lymph % (Auto) 24.5 % 08/31/24 10:20 Johnson % (Auto) 5.5 % 08/31/24 10:20 Eos % (Auto) 4.4 % 08/31/24 10:20 Baso % (Auto) 1.1 % 08/31/24 10:20 Neut # (Auto) 5.46 10^3/uL (1.8-7.7) 08/31/24 10:20 Lymph # (Auto) 2.1 10^3/uL (0.8-4.8) 08/31/24 10:20 Johnson # (Auto) 0.5 10^3/uL (0.2-0.9) 08/31/24 10:20 Eos # (Auto) 0.4 10^3/uL (0.0-0.8) 08/31/24 10:20 Baso # (Auto) 0.1 10^3/uL (0.0-0.1) 08/31/24 10:20 Nucleated RBC % (auto) 0 % 08/31/24 10:20 Nucleated RBCs # 0.0 /100WBC 08/31/24 10:20 Sodium 139 mmol/L (136-145) 08/31/24 10:20 Potassium 3.6 mmol/L (3.5-5.1) 08/31/24 10:20 Chloride 102 mmol/L (98-107) 08/31/24 10:20 Carbon Dioxide 27 mmol/L (22-29) 08/31/24 10:20 Anion Gap 13.6 (5-19) 08/31/24 10:20 BUN 9 mg/dL (6-20) 08/31/24 10:20 Creatinine 0.6 mg/dL (0.5-0.9) 08/31/24 10:20 GFR Calculation 119.9 mL/min (90-130) 08/31/24 10:20 Glucose 82 mg/dL (65-115) 08/31/24 10:20 Calculated Osmolality 286 mOsm/kg (285-295) 08/31/24 10:20 Calcium 9.1 mg/dL (8.5-10.5) 08/31/24 10:20 Total Bilirubin 0.3 mg/dL (0.15-1.2) 08/31/24 10:20 AST 14 U/L (0-32) 08/31/24 10:20 ALT 14 U/L (0-33) 08/31/24 10:20 Alkaline Phosphatase 69 U/L (35-105) 08/31/24 10:20 Total Protein 7.5 g/dL (6.6-8.7) 08/31/24 10:20 Albumin 4.5 g/dL (3.5-5.2) 08/31/24 10:20 Globulin 3.0 g/dL (1.3-4.6) 08/31/24 10:20 Urine Color Dark yellow (Yellow) A 08/31/24 10:20 Urine Appearance Clear (CLEAR) 08/31/24 10:20 Urine pH 6.0 (5-7) 08/31/24 10:20 Ur Specific [place] 1.032 (1.005-1.030) H 08/31/24 10:20 Urine Protein Trace (Negative) A 08/31/24 10:20 Urine Glucose (UA) Negative (Normal) 08/31/24 10:20 Urine Ketones Trace (Negative) 08/31/24 10:20 Urine Blood Negative (Negative) 08/31/24 10:20 Urine Nitrate Negative (Negative) 08/31/24 10:20 Urine Bilirubin 1+ (Negative) H 08/31/24 10:20 Urine Urobilinogen 1.0 mg/dL (Negative) 08/31/24 10:20 Ur Leukocyte Esterase Negative (Negative) 08/31/24 10:20 Urine RBC 0-2 /hpf (0-2) 08/31/24 10:20 Urine WBC 0-5 /hpf (0-5) 08/31/24 10:20 Ur Squamous Epith Cells 0-5 /hpf (0-5) 08/31/24 10:20 Amorphous Sediment Not Reportable 08/31/24 10:20 Urine Bacteria None seen /hpf (NONE) 08/31/24 10:20 Hyaline Casts 1.65 /lpf 08/31/24 10:20 Urine HCG, Qual Negative (Negative) 08/31/24 10:20 Blood Type O Negative 09/05/24 06:30 Rho(D) Type Rh negative 09/05/24 06:30 Antibody Screen Negative 09/05/24 06:30 Vitals Last Vital Signs Temp 98.4 F 09/05/24 21:03 Pulse 64 09/05/24 21:03 Resp 16 09/06/24 07:33 BP 111/72 09/05/24 21:03 Pulse Ox 98 09/05/24 21:03 O2 Del Method Room Air 09/05/24 21:03 O2 Flow Rate 8 09/05/24 10:10 Results Labs OB ([facility]): Blood Type O Negative 09/05/24 Antibody Screen Negative 09/05/24 Hct 26.3 % (36-47) L 09/06/24 Hgb 8.60 g/dL (11.27-16.99) L 09/06/24 Rho(D) Type Rh negative 09/05/24 Plt Count 251 10^3/cmm (157-399) 09/06/24 Pap Smear Interpret See note 06/01/24 Discharge Plan Discharge Patient Disposition: Home Condition: Stable Prescriptions: New acetaminophen 325 mg capsule 325 mg PO Q4H PRN (Reason: fever or postoperative pain) Qty: 60 0RF ibuprofen 800 mg tablet 800 mg PO TID PRN (Reason: pain) Qty: 60 0RF docusate sodium [Colace] 100 mg capsule 100 mg PO BID Qty: 60 0RF ferrous sulfate [Iron (ferrous sulfate)] 325 mg (65 mg iron) tablet 325 mg PO BID Qty: 60 0RF metronidazole 500 mg tablet 500 mg PO BID 14 Days Qty: 28 0RF nitrofurantoin macrocrystal 100 mg capsule 100 mg PO BID 3 Days Qty: 6 0RF Rx Instructions: must administer with a meal/food oxycodone-acetaminophen [Endocet] 7.5-325 mg tablet 1 tab PO Q4H PRN (Reason: Postoperative pain) Qty: 20 0RF Continued lamotrigine [Lamictal] 200 mg tablet 200 mg PO DAILY dextroamphetamine-amphetamine [Adderall] 20 mg tablet 20 mg PO BID Rx Instructions: administer doses at least 4-6 hours apart acetaminophen 325 mg capsule 325 mg PO Q4H PRN (Reason: fever or postoperative pain) Qty: 60 0RF Discharge Orders: Discharge Order (Routine); Ordered 09/06/24 Ordered By: Barron Mcgill Referrals: Barron Mcgill MD [Physician] - 2 weeks Discharge Diet: Soft Mechanical Discharge Activity: Limit activity as instructed Patient Instructions: Nitrofurantoin (By mouth), Iron Supplements (By mouth), Acetaminophen (By mouth), Ibuprofen (By mouth), Oxycodone/Acetaminophen (By mouth), Metronidazole (By mouth), Laxative, Stool Softeners (By mouth), Acute Wound Care (DC), Bladder Sling for Women (DC), Vaginal Hysterectomy (DC), Anterior Vaginal Repair (DC), Posterior Vaginal Repair (DC), OB Food/Drug Interaction Guide, Opioid Safety, Post Anesthesia Care Activity Restrictions/Additional Instructions: 1. Please call [facility] on next working day to make your post-operative appointment in 2 weeks. 2. Please stay home until you come back to the clinic on first post-hospatilization check up. 3. Please follow instructions on your medications CAREFULLY. 4. If you have abdominal incision, do not cover it unless dressing is necessary because of drainage. OK to shower, but avoid bath. Leave steri-strips until they fall off. If they are still on one week after surgery, you may remove them. 5. If you had vaginal surgery or vaginal repair, Dr. Mcgill may instruct you to take SITZ bath. 6. Yellow, blood tinged odorous vaginal discharge is usually normal after hysterectomy or vaginal surgeries. 7. No SEXUAL INTERCOURSE, tampons, or douches until you are completely released from the post-operative care. 8. Avoid constipation by eating right and maybe using some Metamucil or Milk of Magnesia. 9. All prescription refills are given during the working hours. Please do no wait till it runs out. Call the clinic at [phone] before your medication runs out. The clinic will get in touch with your doctor to prescribe medications if necessary. 10. Please remain within 40 mile radius from our hospital because emergencies do happen now and then during the post-operative period. 11. If you have stairs at home, take one step at a time slowly and minimize the number of trips. It helps to stay in one floor for the next few days. No lifting except what you can lift by one hand until you are released from the post-operative care. 12. Driving is discouraged until you are well healed. It may be 3-4 weeks before you feel strong enough to drive. You should be able to turn and look through the rear window without pain and you should be able to push the brake pedal very hard without pain before you drive. No fast rules, but SAFETY should be your primary concern. DO NOT drive if you are on sedating medications such as narcotics. 13. Call the clinic (during working hours) to make urgent appointment or go to the Emergency room, if any of the following occurs: i. Vaginal bleeding becomes heavy, more than a period. ii. Incision becomes red and sore, or drains pus. iii. Your TEMPERATURE is over 100.4F or you have chill. iv. IV site becomes red and swollen (a little ``knot?? is usually OK) v. Persistent nausea and vomiting vi. Persistent constipation or diarrhea vii. Rash or allergic reaction to medications. Discharge Attestations SAND MIXER OPERATOR Time Spent in Discharge Care*: greater than 30 min Coding Level of Care Code Acute Code for Chg Fwd
[2024-09-06 09:25] VITALS: BP 111/72; PULSE 69; RESP 16; TEMP 36.6; O2SAT 99
== END 2024-09-06 09:25 | disposition home or self-care (01) ==
LOC: OBGYN 10:18
PROVIDERS: Admitting Provider Obstetrics & Gynecology; PCP Family Medicine; Visit Provider Obstetrics & Gynecology
PROC: (CPT 57260; principal; 2024-09-05 07:00)
PROC: (CPT 57288; 2024-09-05 07:00)
PROC: 0JQC0ZZ Repair Pelvic Region Subcutaneous Tissue and Fascia, Open Approach (ICD-10-PCS; CPT 57240; 2024-09-05 07:00)
PROC: (CPT 57250; 2024-09-05 07:00)
DX: N81.4 Uterovaginal prolapse, unspecified (principal); N72 Inflammatory disease of cervix uteri; N39.3 Stress incontinence (female) (male)
CPT/HCPCS: 57260; 57288; 58260; 36415; 51798; 80053; 81001; 81025; 85025; 85027; 86850; 86900; 88307; C1713; G0378; J0690; J1100; J1171; J1200; J1885; J2250; J2405; J2704; J3010; J3490; J7030